=== PATIENT | male | born 1970 | race Caucasian/White ===

== ENCOUNTER → 2017-02-10 | Outpatient (CLI) | payer OTHER ==
--- NOTE | 2017-02-10 11:37 | XR ---
EXAM TYPE: LUMBAR SPINE X RAY SERIES COMPARISON: NONE HISTORY: Back pain TECHNIQUE: 4 views are submitted. FINDINGS: Alignment is anatomic. The pedicles are intact. The transverse processes are intact. Degenerative d isc disease at all levels with severe changes L5-S1 with a grade 1 anterolisthesis. Suspect bilateral spondylolysis. Multilevel facet arthropathy noted. IMPRESSION: 1. Multilevel moderate to severe degenerative disc disease with most marked findings at L5-S1. 2. Grade 1 anterolisthesis L5 on S1 with bilateral spondylolysis L5.
== END | disposition home or self-care (01) ==
LOC: RADXRMAIN 11:13
PROVIDERS: ATTEND Internal Medicine
DX: M43.17 Spondylolisthesis, lumbosacral region (principal); M51.37 Other intervertebral disc degeneration, lumbosacral region; M47.816 Spondylosis without myelopathy or radiculopathy, lumbar region
CPT/HCPCS: 72110

== ENCOUNTER → 2017-03-04 | Outpatient (CLI) | payer OTHER ==
--- NOTE | 2017-03-04 13:49 | MR ---
EXAMINATION TYPE: MR lumbar spine wo con DATE OF EXAM: 03/04/2017 COMPARISON: Lumbar spine x-ray February 10, 2017. CT renal stones November 03, 2015. HISTORY: Low back pain TECHNIQUE: Multiplanar, multisequence imaging of the lumbar spine is performed without IV contrast. FINDINGS: Sagittal images of the lumbar spine show vertebral body heights to remain satisfactory. As suspected on plain films and confirmed on old CT there are bilateral pars defects at L5 level. There is grade 1 anterolisthesis of L5 on S1 measured approximately 5 to 6 mm on sagittal images. Multilev el disc desiccation is seen. There is mild to moderate multilevel disc space narrowing. Multilevel sm all posterior disc herniations are seen on sagittal images. The conus medullaris is somewhat high in position ending at mid T12 level. No abnormal signal is seen. No suspicious clumping of lumbosacral n erve roots is present. There is heterogeneous diminished T1 and T2 signal consistent with Modic type III degenerative change involving the superior S1 endplate. Vacuum disc phenomenon L5-S1 level is pre sent. Mild multilevel anterior spurring is seen. Axial images show the T12-L1 level to appear within normal limits. Axial images at the L1-L2 level show mild broad disc bulge mildly effacing anterior thecal sac. There is mild facet degenerative changes seen bilaterally. Bilateral neural foramina are patent. Axial images at L2-L3 level show mild/moderate broad disc bulge mildly effacing anterior thecal sac o n axial image 18. There is mild facet degenerative change seen bilaterally. There is mild right great er than left bilateral anterior inferior neural foraminal narrowing at this level identified. Axial images at the L3-L4 level show moderate broad-based posterior disc protrusion effacing anterior thecal sac. There is mild facet degenerative changes bilaterally. There is mild to moderate bilatera l anterior inferior neural foraminal narrowing at this level identified. Axial images at the L4-L5 level show broad-based central disc protrusion and mild facet degenerative changes bilaterally. There is mild to moderate bilateral anterior inferior neural foraminal narrowing at this level identified. Axial images at the L5-S1 level show mild facet degenerative changes bilaterally. There are spondylit ic assessed with broad-based posterior disc protrusion. There is increased signal posteriorly consist ent with annular tear. There is moderate to severe bilateral neural foraminal narrowing with encroach ment on inferior aspect of both L5 nerves felt present seen best on sagittal images 1 and 2 on the le ft and sagittal image 11 and 12 on the right. No suspicious retroperitoneal findings are seen. IMPRESSION: Multilevel degenerative changes in lumbar spine as detailed above. Attention to L5-S1 lev el where there are bilateral pars defects and spondylolisthesis, this contributes to moderate to phi re bilateral neural foraminal narrowing with suspected encroachment on both L5 nerves.
== END | disposition home or self-care (01) ==
LOC: RADMRIMAIN 12:41
PROVIDERS: ATTEND Internal Medicine
DX: M99.73 Connective tissue and disc stenosis of intervertebral foramina of lumbar region (principal); M47.816 Spondylosis without myelopathy or radiculopathy, lumbar region
CPT/HCPCS: 72148

== ENCOUNTER → 2017-04-29 | Outpatient (CLI) | payer OTHER ==
--- NOTE | 2017-04-29 14:39 | CT ---
EXAMINATION TYPE: CT lumbar spine wo con DATE OF EXAM: 04/29/2017 2:23 PM COMPARISON: NONE HISTORY: Spondylolisthesis lumbar region CT DLP: 2188 mGycm Automated exposure control for dose reduction was used. Unenhanced CT of the lumbar spine was performed. Bone and soft tissue window settings are submitted as well as coronal and sagittal reconstructions. There is multilevel mild to moderate degenerative disc disease with severe changes at L5-S1. Vacuum d isc phenomenon noted. There is postsurgical change of the left paraspinal region and there is a pleur al-based nodule within the left lower lobe measuring 5 mm. L1-L2: Normal disc space height. No disc herniation protrusion or central stenosis. No facet joint arthropathy. No evidence for foraminal encroachment. L2-L3: Diffuse disc bulging and facet arthropathy. Suspected degree of spinal stenosis due to diminu tive canal and disc bulging with hypertrophic change of facet. Foraminal encroachment noted. . L3-L4: Circumferential disc bulging with facet arthropathy. Diminutive spinal canal contributes to mark spected spinal stenosis with bilateral foraminal encroachment. L4-L5: There is facet arthropathy. There is a diminutive spinal canal and mild bilateral foraminal en croachment. Mild central disc bulging. Spinal stenosis suspected. L5-S1: There is a grade 1 spondylolisthesis with severe degenerative disc disease and vacuum disc phe nomenon. There is approximate 5 mm anterolisthesis. Bilateral spondylolysis noted. Significant bilate ral foraminal encroachment. IMPRESSION: 1. Grade 1 anterolisthesis L5 on S1 measuring approximately 5 mm. 2. Multilevel degenerative disc disease, facet arthropathy and disc bulging resulting in multilevel f oraminal encroachment as discussed above. 3. 5 mm left lower lobe pulmonary nodule appears stable from the CT of 11/03/2015 with evidence of pre vious surgery in the paraspinal region on the left. Correlate clinically..
== END | disposition home or self-care (01) ==
LOC: RADXRMAIN 14:06
PROVIDERS: ATTEND Orthopaedic Surgery
DX: M51.26 Other intervertebral disc displacement, lumbar region (principal); M43.16 Spondylolisthesis, lumbar region; M51.36 Other intervertebral disc degeneration, lumbar region; M46.86 Other specified inflammatory spondylopathies, lumbar region; Z98.890 Other specified postprocedural states
CPT/HCPCS: 72131

== ENCOUNTER → 2018-03-19 | Outpatient (CLI) | payer OTHER ==
--- NOTE | 2018-03-19 15:35 | CT ---
EXAMINATION TYPE: CT lumbar spine wo con DATE OF EXAM: 03/19/2018 11:59 AM COMPARISON: 04/29/2017 HISTORY: Low back pain, post op CT DLP: 1632.3 mGycm Automated exposure control for dose reduction was used. TECHNIQUE: Unenhanced CT of the lumbar spine was performed. Bone and soft tissue window settings are submitted as well as coronal and sagittal reconstructions. FINDINGS: There is grade 1 anterolisthesis of L5 on S1 as seen on the prior of 04/29/2017. This is no w surgically fixated and there is resection of the posterior elements. Pedicular screws and fixation rods traverse the L4-S1 vertebral levels. Minimal multilevel degenerative change is seen in the remai vance levels of the lumbar spine. No acute fracture or new additional site of malalignment. Fat strand ing and phlegmonous changes are seen of the subcutaneous tissues of the postoperative site, typically seen. Although evaluation for focal abscess is limited without intravenous contrast. L1-L2: Normal disc space height. No disc herniation protrusion or central stenosis. No facet joint arthropathy. No evidence for foraminal encroachment. L2-L3: There is a small broad-based disc bulge and facet arthropathy without significant spinal canal stenosis nor neural foraminal narrowing. L3-L4: There is facet arthropathy and a broad-based disc bulge resulting in mild to moderate bilatera l neural foraminal narrowing. No significant spinal canal stenosis. L4-L5: There is a broad-based disc bulge and resection of the posterior elements. There is mild right neural foraminal narrowing as result of the eccentric broad-based disc bulge. No spinal canal stenos is or left neural foraminal narrowing. L5-S1: Anterolisthesis is again appreciated. No neural foraminal narrowing or spinal canal stenosis. Posterior element resection is present. IMPRESSION: 1. Postoperative fusion of L4-S1 with phlegmonous changes in the subcutaneous soft tissues. Evaluatio n for abscess is limited without intravenous contrast. If there is leukocytosis and fever repeat exam with contrast could be performed. 2. Persistent surgically fixated grade 1 anterolisthesis of L4 on L5. 3. Mild multilevel degenerative changes of L2-L4 without appreciable spinal canal stenosis.
== END | disposition home or self-care (01) ==
LOC: RADCTMAIN 11:19
PROVIDERS: ATTEND Orthopaedic Surgery
DX: M47.816 Spondylosis without myelopathy or radiculopathy, lumbar region (principal); Z98.890 Other specified postprocedural states
CPT/HCPCS: 72131

== ENCOUNTER 2019-11-17 17:32 | Emergency (ER) | payer OTHER ==
[2019-11-17] MEDS ORDERED: diphenhydrAMINE 50 MG/ML 1 ML VIAL IM STA (18:40)
[2019-11-17] MEDS ORDERED: HYDROmorphone 1 MG/ML 1 ML SYRINGE IM STA (18:40)
--- NOTE | 2019-11-17 18:55 | XR ---
EXAMINATION TYPE: XR knee complete RT DATE OF EXAM: 11/17/2019 CLINICAL HISTORY: Twisting injury with pain. TECHNIQUE: Three views of the right knee are obtained. COMPARISON: None. FINDINGS: There is no acute fracture/dislocation evident in right knee. unremarkable. Evidence of p rior ACL surgical repair. Severe patellofemoral compartment narrowing and spurring. Moderate lateral tibiofemoral compartment spurring with mild to moderate narrowing. Moderate narrowing medial tibiofem oral compartment with mild spurring. Probable small to moderate sized suprapatellar joint effusion. IMPRESSION: There is no acute fracture or dislocation in the right knee.
--- NOTE | 2019-11-17 19:42 | ED ---
General Adult HPI - General Chief complaint: Extremity Injury, Lower Stated complaint: Knee injury Time Seen by Provider: 11/17/19 18:25 Source: patient, RN notes reviewed, old records reviewed Mode of arrival: ambulatory Limitations: physical limitation - History of Present Illness Initial comments: Patient is a 49-year-old male presents returns today with complaints of right knee pain after its twisted. He states he's had multiple knee surgeries in the past. He does have screws and plate within the knee. Patient reports that he has significant effusion swelling at this time. Patient reports these had no other significant complaints. - Related Data Home Medications Medication Instructions Recorded Confirmed Aspirin 650 mg PO BID PRN 04/13/04/22/16 Hydrocodone/Acetaminophen [[place] 1 tab PO Q6H PRN 04/22/16 04/22/16 5-325] Multivitamins, Thera [Multivitamin] 1 tab PO DAILY 04/22/16 04/22/16 Previous Rx's Medication Instructions Recorded Ibuprofen [Motrin] 800 mg PO Q6HR PRN #30 tab 04/12/16 Cephalexin [Keflex] 500 mg PO Q6HR #40 cap 04/22/16 HYDROcodone/APAP 5-325MG [[place] 5] 1 each PO Q4HR PRN #15 tab 04/22/16 HYDROcodone/APAP 5-325MG [[place] 1 tab PO Q4HR PRN 3 Days #18 tab 11/17/19 5-325] Ibuprofen [Motrin] 600 mg PO Q6HR PRN #20 tab 11/17/19 Allergies Allergy/AdvReac Type Severity Reaction Status Date / Time STERI-STRIPS AdvReac Severe BLISTERS Uncoded 11/17/19 18:21 Review of Systems ROS Statement: Those systems with pertinent positive or pertinent negative responses have been documented in the HPI. ROS Other: All systems not noted in ROS Statement are negative. Past Medical History Past Medical History: Asthma Additional Past Medical History / Comment(s): diverticulosis. And diverticulitis inquiring bowel resection and temporary colostomy Placement and reversal. Surgery completed by Dr. Michel. 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 Limitations: physical limitation General appearance: alert, in no apparent distress Head exam: Present: atraumatic, normocephalic, normal inspection Eye exam: Present: normal appearance, PERRL, EOMI. Absent: scleral icterus, conjunctival injection, periorbital swelling ENT exam: Present: normal exam, mucous membranes moist Neck exam: Present: normal inspection. Absent: tenderness, meningismus, lymphadenopathy Respiratory exam: Present: normal lung sounds bilaterally. Absent: respiratory distress, wheezes, rales, rhonchi, stridor Cardiovascular Exam: Present: regular rate, normal rhythm, normal heart sounds. Absent: systolic murmur, diastolic murmur, rubs, gallop, clicks GI/Abdominal exam: Present: soft, normal bowel sounds. Absent: distended, tenderness, guarding, rebound, rigid Extremities exam: Present: normal inspection, full ROM, normal capillary refill. Absent: tenderness, pedal edema, joint swelling, calf tenderness Right Upper Leg exam: Present: normal inspection, full ROM Knee exam: Present: normal inspection, tenderness, swelling. Absent: full ROM (pain with full extension) Lower Leg exam: Present: normal inspection, full ROM Back exam: Present: normal inspection Neurological exam: Present: alert, oriented X3, CN II-XII intact Psychiatric exam: Present: normal affect, normal mood Skin exam: Present: warm, dry, intact, normal color. Absent: rash Course Vital Signs 11/17/19 11/17/19 11/17/19 18:19 19:46 20:41 Temperature 98.2 F 98.9 F Pulse Rate 81 73 68 Respiratory 18 17 17 Rate Blood Pressure 117/77 114/66 131/82 O2 Sat by Pulse 95 95 98 Oximetry Procedures - Orthopedic Splinting/Casting Injury #1 Side: right Lower Extremity Injury Location: knee Lower Extremity Immobilizer: knee immobilizer Medical Decision Making - Medical Decision Making 49 year old male presents today for complaints of R knee sprain and shows evidence of effusion. PAtient has pain with full extension. PAtient xray shows effusion, no acute fracutre or dislocation. Discussed likely ligament injury. Discussed close ortho follow up and DC with knee immobilizer and pain medication. Return parameters discussed. - Radiology Data Radiology results: report reviewed There is no acute fracture/ dislocation evidence in right knee. Evidence of prior ACL repair. Small to moderate supra patellar joint effusion. Disposition Clinical Impression: Effusion, right knee, Right knee sprain Disposition: HOME SELF-CARE Condition: Good Instructions (If sedation given, give patient instructions): Knee Sprain (ED), ACL Injury (ED) Additional Instructions: Patient should ambulate with crutches and using the knee immobilizer to help support the leg. Using toe-touch to bear weight. Take pain medication as prescribed. Follow-up with orthopedic. Return to the ED if any alarming signs or symptoms occur. Prescriptions: Ibuprofen [Motrin] 600 mg PO Q6HR PRN #20 tab PRN Reason: Pain HYDROcodone/APAP 5-325MG [[place] 5-325] 1 tab PO Q4HR PRN 3 Days #18 tab PRN Reason: Pain Is patient prescribed a controlled substance at d/c from ED?: Yes If prescribed controlled substance>3 days was MAPS reviewed?: Prescribed <3 Days If opioid is for acute pain is fill amount 7 days or less?: Yes If Rx opioid, was Start Talking consent form obtained?: Yes Referrals: Radha Cai MD [Primary Care Provider] - 1-2 days Heath Heller PAC [PHYSICIAN INTAKE MANAGER] - 1-2 days Time of Disposition: 20:20
[2019-11-17 19:48] VITALS: RESP 17
[2019-11-17 20:56] VITALS: BP 131/82; PULSE 68; TEMP 98.9
== END 2019-11-17 20:41 | disposition home or self-care (01) ==
LOC: EC 17:32
DX: S83.91XA Sprain of unspecified site of right knee, initial encounter (principal); M25.461 Effusion, right knee; Z91.048 Other nonmedicinal substance allergy status; X50.1XXA Overexertion from prolonged static or awkward postures, initial encounter
CPT/HCPCS: 73562; 99284; 96372 ×2; L1830 ×2; J1200; J1170

== ENCOUNTER → 2019-12-27 | Outpatient (CLI) | payer OTHER ==
--- NOTE | 2019-12-27 10:08 | MR ---
EXAMINATION TYPE: MR knee RT wo con DATE OF EXAM: 12/27/2019 COMPARISON: Plain film 11/21/2019 HISTORY: Right Knee Pain, Stepped in a hole. Prior Surgery TECHNIQUE: Multiplanar, multisequence imaging of the right knee is performed without IV contrast. FINDINGS: There is artifact due to patient's indwelling hardware. MEDIAL MENISCUS: Abnormal signal is present within the meniscus which may correspond to chondrocalcin osis. The posterior horn of the meniscus torn, complete tear as noted on coronal image 25, sagittal i mage 11 LATERAL MENISCUS: Chondrocalcinosis noted on plain film, abnormal signal present within the body, ant erior and posterior horns of the meniscus. Posterior horn meniscus is torn completely, no attachment to the root anchor similar to the posterior horn of the medial meniscus CRUCIATE LIGAMENTS: Patient shows anterior cruciate ligament repair, the graft shows some intact fibe rs, there may be partial tear COLLATERAL LIGAMENTS: Screw tract is present within the lateral femoral condyle, there is some artifa ct present, fluid signal is present coursing along the distal aspect of the lateral femoral condyle i n close proximity to the iliotibial band, focal defect noted on axial image 17 is likely due to screw placement through the iliotibial band, correlate with surgical history is fluid signal present at th is level EXTENSOR MECHANISM: Visualized quadriceps and patellar tendons are intact. EFFUSION: There is a suprapatellar joint effusion present. POPLITEAL CYST: No popliteal/lopes cyst. TRICOMPARTMENT SPACES: Joint space loss present. Femoral joint, lateral compartment. There is margina l spurring at the patellofemoral joint, lateral compartment and medial compartment CARTILAGE: Grade III chondromalacia present in the medial compartment, grade 3 to grade IV chondromal acia present laterally and present at the posterior patella BONE MARROW SIGNAL: Some reactive bone marrow signal changes present along the proximal tibia at the level of the tibial spine, there is likely local geode formation OTHER: There is subcutaneous edema present in the prepatellar location, there may be local fluid pre sent with septation, metallic artifact is present this level possibly due to prior surgery. Possible ganglion cyst present posterior to the knee joint, as internal septations present. T2 bright signal, cluster of grapes appearance measuring 11 mm in greatest dimension. There is an ossific density prese nt posterior to the joint suggestive of loose body. Possible strain or chronic degenerative signal pr esent within the proximal bellies of the gastrocnemius, some local fluid present and increased signal within the tendon. IMPRESSION: Osteoarthritis, postop changes, tear of the posterior horns of the medial and lateral menisci and add itional findings above.
== END | disposition home or self-care (01) ==
LOC: RADMRIMAIN 08:42
PROVIDERS: ATTEND Orthopaedic Surgery
DX: M17.11 Unilateral primary osteoarthritis, right knee (principal); Z98.890 Other specified postprocedural states; S83.281A Other tear of lateral meniscus, current injury, right knee, initial encounter

== ENCOUNTER → 2020-01-03 | Outpatient (CLI) | payer OTHER ==
[2020-01-03 10:48] LABS: Basophils % (A) 1 %; Eosinophils # (A) 0.1 k/uL (0-0.7); Eosinophils % (A) 3 %; HCT 44.1 % (39.0-53.0); HGB 14.7 gm/dL (13.0-17.5); Lymphocytes # (A) 1.4 k/uL (1.0-4.8); Lymphocytes % (A) 33 %; MCH 31.8 pg (25.0-35.0); MCHC 33.3 g/dL (31.0-37.0); MCV 95.5 fL (80.0-100.0); Mean Platelet Volume 7.8; Monocytes # (A) 0.3 k/uL (0-1.0); Monocytes % (A) 7 %; Neutrophils # (A) 2.4 k/uL (1.3-7.7); Neutrophils % (A) 55 %; Platelet Count 209 k/uL (150-450); RBC 4.62 m/uL (4.30-5.90); RDW 12.9 % (11.5-15.5); WBC 4.4 k/uL (3.8-10.6)
== END | disposition home or self-care (01) ==
LOC: LABPAT 09:45
PROVIDERS: ATTEND Orthopaedic Surgery
DX: Z01.818 Encounter for other preprocedural examination (principal); M23.91 Unspecified internal derangement of right knee
CPT/HCPCS: 36415; 80051; 85025; 93005

== ENCOUNTER → 2020-01-20 | Day surgery (SDC) | payer OTHER ==
[2020-01-17 10:51] VITALS: BMI 35.9
--- NOTE | 2020-01-19 21:50 | HP ---
HISTORY AND PHYSICAL CHIEF COMPLAINT: Right knee pain. 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 He notes persistent pain and intermittent giving way. He tried an injection along with anti-inflammatories and bracing, without much relief. He has been off work because of this. PAST MEDICAL HISTORY: negative PAST SURGICAL HISTORY: Significant for left Achilles tendon repair. ACL reconstruction CURRENT MEDICATIONS: Ibuprofen. ALLERGIES: DILAUDID. FAMILY HISTORY: Family history is noncontributory. SOCIAL HISTORY: Negative for current tobacco or alcohol use. REVIEW OF SYSTEMS: Sixteen-point review of systems otherwise reviewed and is noncontributory. PHYSICAL EXAMINATION: On examination, the patient is approximately 6 feet 1 inch tall, 290 pounds of endomorphic habitus. HEENT exam is nonfocal. NECK: Supple. He has painless passive motion of the right hip. Straight leg raise is negative. Active motion of the right knee is minus 10 to 100 degrees of flexion. There is mild effusion. He is tender about the medial and lateral joint line. Collaterals are stable. Evert is 1+. Sharifa's elicits medial and lateral pain. His distal neurovascular exam appears intact in the right lower extremity. MRI report of right knee from 12/27/2019 shows evidence of posterior medial and lateral meniscal tears. Previous hardware related to his ACL reconstruction is noted. There is also a degree of chondrocalcinosis. IMPRESSION: 1. Internal derangement of right knee with symptomatic medial and lateral meniscal tears. 2. History of ACL reconstruction, right knee. RECOMMENDATIONS: I have talked to the patient at length regarding his condition along with treatment options. At this point he is quite symptomatic and opts to proceed with surgery. We will plan to proceed with arthroscopic evaluation with probable partial medial and lateral meniscectomy. We will likely perform that as an outpatient procedure. Risks and benefits were discussed at length in layman's terms. MMODL / IJN: [id number] / MTDD
[~2020-01-20] MED LIST: DEXAMETHASONE SOD PHOSPHATE 10 MG/ML 1 ML VIAL IV ONE; HYDROcodone/APAP 7.5-325MG 1 EACH TAB ONE; HYDROcodone/APAP 7.5-325MG 1 EACH TAB PO ONE; KETOROLAC 30 MG/ML 1 ML VIAL ONE; LACTATED RINGERS 1,000 ML IV ONE; LACTATED RINGERS 1,000 ML IV SCH; LIDOCAINE 1% (10MG/ML) FOR IV START INTRADERMA PRN; LIDOCAINE 1% INJ 10MG/ML (20 ML MDV) ONE; MIDAZOLAM 2 MG/2 ML VIAL ONE; MORPHINE SULFATE 4 MG/ML SYRINGE IV PRN; ONDANSETRON 4 MG/2 ML VIAL IVP ONE; ONDANSETRON 4 MG/2 ML VIAL ONE; PROPOFOL 10 MG/ML 20 ML VIAL IV ONE; ceFAZolin 3 GM in SODIUM CHLORIDE 0.9% 100 ML IVPB ONE; fentaNYL (PF) 50 MCG/ML 2 ML AMP ONE
--- NOTE | 2020-01-20 09:53 | P.OP ---
Date of Procedure: 01/20/20 Preoperative Diagnosis: Right knee internal derangement Postoperative Diagnosis: Right knee posterior medial meniscal tear/posterior lateral meniscal tear/grade 3 chondral injury distal medial femoral condyle/loose body Procedure(s) Performed: Right knee arthroscopic partial medial meniscectomy/partial lateral meniscectomy/medial femoral chondrectomy/microfracture medial femoral condyle/loose body removal 1 x 1 cm Anesthesia: LIA Surgeon: Winston Franco Estimated Blood Loss (ml): 10 Pathology: none sent Condition: stable Disposition: PACU Indications for Procedure: The patient is a 49-year-old male presents with progressive right knee pain and mechanical symptoms after previous injury. A discussion of the risks and benefits of continued conservative measures versus operative intervention was made with patient. He opted to proceed with surgery. Operative risks to in clude infection, neurovascular injury, development of blood clots, possible incomplete resolution of symptoms, possible worsening symptoms and need for subsequent procedures was discussed. Informed consent was obtained. Operative Findings: As below Description of Procedure: The patient was brought to the operating room, and after induction of general anesthesia examined the right knee. Collaterals were stable, Evert was 1+, and posterior drawer was negative. The right lower extremity was prepped and draped in a normal fashion. A superior lateral portal was made through a 3 mm skin incision superior and lateral to the patella. This was used for outflow. A lateral portal was made through a 5 mm vertical skin incision lateral to the patella tendon above the joint line. Diagnostic arthroscopy was performed. On inspection of the medial compartment, a complex tear involving the posterior horn of the medial meniscus in the white-red junction was noted. This was debrided back to stable base with straight baskets and a motorized shaver. A grade 3/4 chondral defect was noted involving the posterior central aspect the medial femoral condyle. There was a loose chondral flap debrided back to stable base motorized shaver. Microfracture was performed with a power pik breaching the subchondral surface down to the bone marrow elements On inspection of the notch, the anterior cruciate ligament appeared to be intact but did have some laxity. On inspection of the lateral compartment, a complex tear involving the posterior to middle one third of the lateral meniscus was noted in the white- white junction. This was debrided back to stable base with straight baskets and motorized shaver. A degree of chondrocalcinosis was also noted. A 1 x 1 cm loose body was noted in the posterior lateral joint. This was removed with a grasper. Grade 2-3 chondral changes were noted diffusely in the lateral compartment. On inspection of the patellofemoral articulation, grade 2-3 chondral changes were noted diffusely. The gutters were clear debris. The knee was then thoroughly irrigated. The portals were closed with simple 3-0 nylon sutures. A sterile dressing was applied in addition to a compression stocking. The patient was awoken from general anesthesia and transferred to recovery room in good condition. Blood loss was estimated at 10 mL. No complications were incurred.
[2020-01-20 09:58] VITALS: TEMP 97.1
[2020-01-20] MEDS: fentaNYL (PF) 50 MCG/ML 2 ML AMP IV ONE ×2 (10:08→10:15)
[2020-01-20 11:04] VITALS: BP 132/69; PULSE 76; RESP 17
== END | disposition home or self-care (01) ==
LOC: OR 07:35
PROVIDERS: ATTEND Orthopaedic Surgery
DX: S83.241A Other tear of medial meniscus, current injury, right knee, initial encounter (principal); S83.281A Other tear of lateral meniscus, current injury, right knee, initial encounter; S83.31XA Tear of articular cartilage of right knee, current, initial encounter; X58.XXXA Exposure to other specified factors, initial encounter; M23.41 Loose body in knee, right knee; J45.909 Unspecified asthma, uncomplicated; K08.109 Complete loss of teeth, unspecified cause, unspecified class; F41.9 Anxiety disorder, unspecified; F32.9 Major depressive disorder, single episode, unspecified; M19.90 Unspecified osteoarthritis, unspecified site; Z79.899 Other long term (current) drug therapy; Z98.890 Other specified postprocedural states; Z88.5 Allergy status to narcotic agent; Z91.09 Other allergy status, other than to drugs and biological substances
CPT/HCPCS: 29880; 29879; J2250; J1100; J0690; J2405; J2001; J3010; J1885; J2704

== ENCOUNTER → 2020-06-20 | Outpatient (CLI) | payer OTHER ==
--- NOTE | 2020-06-20 11:12 | XR ---
EXAMINATION TYPE: XR foot complete LT DATE OF EXAM: 06/20/2020 COMPARISON: None HISTORY: Pain in left heel TECHNIQUE: Three-view left foot FINDINGS: No acute fractures or dislocations are evident. Joint spaces are preserved. Plantar calcane al heel spur is present. Note is made of some calcification within the Achilles tendon region. Follow-up exams can be performed 7-10 days from acute trauma for continued pain. IMPRESSION: 1. No acute osseous abnormality. 2. Plantar calcaneal heel spur
== END | disposition home or self-care (01) ==
LOC: RADXRMAIN 09:54
PROVIDERS: ATTEND Internal Medicine
DX: M77.32 Calcaneal spur, left foot (principal)

== ENCOUNTER 2020-12-25 21:16 | Emergency (ER) | payer OTHER ==
[2020-12-25 21:37] VITALS: BP 113/71; PULSE 110; RESP 16; TEMP 98
[2020-12-25] MEDS ORDERED: IBUPROFEN 800 MG TAB PO STA (21:46)
[2020-12-25] MEDS ORDERED: HYDROcodone/APAP 5-325MG 1 EACH TAB PO STA (21:47)
--- NOTE | 2020-12-25 21:48 | ED ---
Lower Extremity Injury HPI - General Chief Complaint: Extremity Injury, Lower Stated Complaint: Right foot injury Source: patient, family, RN notes reviewed, old records reviewed Mode of arrival: ambulatory Limitations: no limitations - History of Present Illness Initial Comments: 50-year-old well-appearing well-nourished white male, alert and oriented 4, presents emergency room with complaints of right foot injury after stepping into a pole. Patient states that he felt a popping sensation in his foot hyperflexed. Patient states that the pain is along the lateral aspect of the fifth metatarsal to the lateral malleolus. Patient states he is able to bear weight but with increasing pain. Patient states pain is 9 out of 10 and was going to take one of his narcosis at home but decided to come in and have it evaluated first. Patient does have a history of asthma and osteoarthritis, left lobectomy and bowel resection with colostomy reversal. Patient denies any other injuries. Denies any open wounds. MD Complaint: ankle injury -: hour(s) Injury: Ankle: Right Type of Injury: hyperflexion Place: street/outdoors Severity scale (1-10): 9 Improves With: immobilization Worsens With: weight bearing, movement, palpation Context: other (Stepped into a hole) Associated Symptoms: snap/pop sensation - Related Data Home Medications Medication Instructions Recorded Confirmed Multivitamins, Thera [Multivitamin] 1 tab PO DAILY 04/22/16 01/20/20 ALPRAZolam [Xanax] 5 mg PO HS PRN 01/17/20 01/20/20 Citalopram Hydrobromide [CeleXA] 20 mg PO QAM 01/17/20 01/20/20 Glucosamine/Chondr [place] A Sod [Osteo 1 each PO DAILY 01/17/20 01/20/20 Bi-Flex Caplet] Previous Rx's Medication Instructions Recorded HYDROcodone/APAP 7.5-325MG [[place] 1 each PO Q6HR PRN #18 tab 01/20/20 7.5] Allergies Allergy/AdvReac Type Severity Reaction Status Date / Time hydromorphone [From Dilaudid] Allergy Itching Verified 12/25/20 21:33 STERI-STRIPS AdvReac Severe BLISTERS Uncoded 12/25/20 21:33 Review of Systems ROS Statement: Those systems with pertinent positive or pertinent negative responses have been documented in the HPI. ROS Other: All systems not noted in ROS Statement are negative. Past Medical History Past Medical History: Asthma, Osteoarthritis (OA) Additional Past Medical History / Comment(s): Hx Diverticulitis requiring bowel resection and temporary colostomy. Wears a right knee brace. History of Any Multi-Drug Resistant Organisms: None Reported Past Surgical History: Back Surgery, Bowel Resection, Orthopedic Surgery Additional Past Surgical History / Comment(s): Hand, knee, achilles, and shoul tristin surgery, left lobectomy for non-cancerous tumor, colostomy, colostomy reversal. Spinal fusion with pins/screws. Past Anesthesia/Blood Transfusion Reactions: Postoperative Nausea & Vomiting (PONV) Past Psychological History: Anxiety, Depression Smoking Status: Never smoker Past Alcohol Use History: None Reported Past Drug Use History: None Reported - Past Family History Father Family Medical History: Cancer Additional Family Medical History / Comment(s): Current Stage 4 Lung Cancer. Mother Family Medical History: Cancer General Exam Limitations: no limitations General appearance: alert, in no apparent distress Head exam: Present: atraumatic, normocephalic, normal inspection Eye exam: Present: normal appearance, PERRL, EOMI. Absent: scleral icterus, conjunctival injection, periorbital swelling ENT exam: Present: normal exam, normal oropharynx, mucous membranes moist Neck exam: Present: normal inspection, full ROM. Absent: tenderness, meningismus, lymphadenopathy, thyromegaly Respiratory exam: Present: normal lung sounds bilaterally. Absent: respiratory distress, wheezes, rales, rhonchi, stridor, chest wall tenderness, accessory muscle use, decreased breath sounds, prolonged expiratory Cardiovascular Exam: Present: normal rhythm, tachycardia, normal heart sounds. Absent: systolic murmur, diastolic murmur, rubs, gallop, clicks GI/Abdominal exam: Present: soft, normal bowel sounds. Absent: distended, tenderness, guarding, rebound, rigid Extremities exam: Present: tenderness, normal capillary refill. Absent: pedal edema, joint swelling, calf tenderness Right Lower Leg exam: Present: normal inspection, full ROM. Absent: tenderness, swel ling Ankle exam: Present: tenderness, swelling. Absent: full ROM, abrasion, laceration, ecchymosis (Right lateral malleolus), deformity, crepitus, dislocation, erythema Foot/Toe exam: Present: normal inspection, tenderness (The metatarsal). Absent: full ROM, swelling, ecchymosis, deformity, crepitus, puncture wound, foreign body Neurovascular tendon exam: Present: no vascular compromise, abnormal cap refill. Absent: pulse deficit, extremity cold to touch, pallor, foot drop Back exam: Present: normal inspection, full ROM. Absent: tenderness, CVA tenderness (R), CVA tenderness (L), muscle spasm, paraspinal tenderness, vertebral tenderness Neurological exam: Present: alert, oriented X3, CN II-XII intact Psychiatric exam: Present: normal affect, normal mood Skin exam: Present: warm, dry, intact, normal color. Absent: rash, cyanosis, diaphoretic, erythema, petechiae, pallor, mottled Course Vital Signs 12/25/20 21:34 Temperature 98 F Pulse Rate 110 H Respiratory 16 Rate Blood Pressure 113/71 O2 Sat by Pulse 96 Oximetry Medical Decision Making - Medical Decision Making X-ray of the right foot shows no acute fracture or dislocation. There is mild degenerative changes noted. Patient will be placed in an ortho shoe directed to follow up with orthopedics. Case discussed with Dr. Whatley Disposition Clinical Impression: Right foot injury Disposition: HOME SELF-CARE Condition: Good Instructions (If sedation given, give patient instructions): Foot Sprain (ED) Additional Instructions: Rest, ice, and elevate, Motrin as needed for pain and swelling. Follow-up with the primary care doctor in 1 week. Is patient prescribed a controlled substance at d/c from ED?: No Referrals: Radha Cai MD [Primary Care Provider] - 1-2 days Jaskaran Recinos MD [STAFF PHYSICIAN] - 1-2 days Time of Disposition: 22:17
--- NOTE | 2020-12-25 22:14 | XR ---
Result: History: Pain. Comparison: None available. Technique: 3 views of the right foot. Findings: The bone mineralization is appropriate for age. No acute fracture or dislocation is seen. The visualized osseous structures are in anatomic alignmen t. There are scattered mild degenerative changes. Impression: No acute osseous abnormality.
== END 2020-12-25 22:38 | disposition home or self-care (01) ==
LOC: EC 21:16
DX: S99.921A Unspecified injury of right foot, initial encounter (principal); J45.909 Unspecified asthma, uncomplicated; M19.90 Unspecified osteoarthritis, unspecified site; F32.9 Major depressive disorder, single episode, unspecified; F41.9 Anxiety disorder, unspecified; Z79.891 Long term (current) use of opiate analgesic; Z79.899 Other long term (current) drug therapy; X50.1XXA Overexertion from prolonged static or awkward postures, initial encounter
CPT/HCPCS: 99283

== ENCOUNTER 2021-02-20 10:06 | Day surgery (SDC) | payer OTHER ==
--- NOTE | 2021-02-20 10:01 | P.GSHP ---
History of Present Illness H&P Date: 02/20/21 CHIEF COMPLAINT: Colon screen HISTORY OF PRESENT ILLNESS: The patient is a 50-year-old male who presents for colon screen. Lower endoscopy was offered for further evaluation and management. PAST MEDICAL HISTORY: Please see list. PAST SURGICAL HISTORY: Please see list. MEDICATIONS: Please see list. ALLERGIES: Please see list. SOCIAL HISTORY: No illicit drug use FAMILY HISTORY: No reports of Crohn disease or ulcerative colitis. REVIEW OF ORGAN SYSTEMS: CONSTITUTIONAL: No reports of fevers or chills. PHYSICAL EXAM: VITAL SIGNS: Stable GENERAL: Well-developed pleasant in no acute distress. HEENT: No scleral icterus. Extraocular movements grossly intact. Moist buccal mucosa. NECK: Supple without lymphadenopathy. CHEST: Unlabored respirations. Equal bilateral excursions. CARDIOVASCULAR: Regular rate and rhythm. Distal 2+ pulses. ABDOMEN: Soft, nontender, nondistended. MUSCULOSKELETAL: No clubbing, cyanosis, or edema. ASSESSMENT: 1. Colon screen. PLAN: 1. Recommend proceeding with a lower endoscopy Past Medical History Past Medical History: Asthma, Osteoarthritis (OA) Additional Past Medical History / Comment(s): Hx Diverticulitis requiring bowel resection and temporary colostomy. Wears a right knee brace. History of Any Multi-Drug Resistant Organisms: None Reported Past Surgical History: Back Surgery, Bowel Resection, Orthopedic Surgery Additional Past Surgical History / Comment(s): Hand, knee, achilles, and shoulder surgery, left lobectomy for non-cancerous tumor, colostomy, colostomy reversal. Spinal fusion with pins/screws. Past Anesthesia/Blood Transfusion Reactions: Postoperative Nausea & Vomiting (PONV) Past Psychological History: Anxiety, Depression Smoking Status: Never smoker Past Alcohol Use History: None Reported Past Drug Use History: None Reported - Past Family History Father Family Medical History: Cancer Additional Family Medical History / Comment(s): Current Stage 4 Lung Cancer. Mother Family Medical History: Cancer Medications and Allergies Home Medications Medication Instructions Recorded Confirmed Type Multivitamins, Thera [Multivitamin] 1 tab PO DAILY 04/22/16 01/20/20 History ALPRAZolam [Xanax] 5 mg PO HS PRN 01/17/20 01/20/20 History Citalopram Hydrobromide [CeleXA] 20 mg PO QAM 01/17/20 01/20/20 History Glucosamine/Chondr [place] A Sod [Osteo 1 each PO DAILY 01/17/20 01/20/20 History Bi-Flex Caplet] HYDROcodone/APAP 7.5-325MG [[place] 1 each PO Q6HR PRN #18 tab 01/20/20 Rx 7.5] Allergies Allergy/AdvReac Type Severity Reaction Status Date / Time hydromorphone [From Dilaudid] Allergy Itching Verified 12/25/20 21:33 STERI-STRIPS AdvReac Severe BLISTERS Uncoded 12/25/20 21:33
[2021-02-20 10:38] VITALS: TEMP 97.7
[2021-02-20] MEDS ORDERED: LACTATED RINGERS 1,000 ML IV ONE (10:42)
[2021-02-20] MEDS ORDERED: PROPOFOL 10 MG/ML 20 ML VIAL IV ONE (10:58)
[2021-02-20] MEDS ORDERED: LIDOCAINE 1% INJ 10MG/ML (20 ML MDV) ONE (10:58)
[2021-02-20] MEDS ORDERED: fentaNYL (PF) 50 MCG/ML 2 ML AMP ONE (10:58)
[2021-02-20] MEDS ORDERED: MIDAZOLAM 2 MG/2 ML VIAL ONE (10:58)
--- NOTE | 2021-02-20 11:22 | P.PCN ---
Date of Procedure: 02/20/21 Description of Procedure: PREOPERATIVE DIAGNOSIS: Personal history of colon polyps POSTOPERATIVE DIAGNOSIS: Personal history of colon polyps Tubular adenoma hepatic flexure Tubular adenoma ascending colon Sigmoid diverticulosis OPERATION: Colonoscopy to the ileocecal valve and appendiceal orifice, cecum Colonoscopy with hot snare polypectomy SURGEON: Charmaine Watson MD. ANESTHESIA: MAC. INDICATIONS: The patient is an 50-year-old male who presents personal history of colon polyps. Last colonoscopy over 5 years. Benefits and risks were described and informed consent was obtained. DESCRIPTION OF PROCEDURE: The patient had undergone Sutab prep. The patient had been brought into the operating room and laid in the left lateral decubitus position. After adequate intravenous sedation, the rectum was examined with 2% lidocaine jelly. The prostate was unremarkable. No external hemorrhoids were encountered. The rectal tone was within normal limits. No lesions were palpated in the rectal vault. An Olympus colonoscope was advanced until the cecum, ileocecal valve and appendiceal orifice were clearly viewed. The prep was excellent. Sigmoid diverticulosis was encountered. Colonic polyps were found and removed. No evidence of focal colitis was found. Retroflexion of the scope demonstrated grade 1 internal hemorrhoids without active bleeding or inflammation. The colon was desufflated. The patient had tolerated the procedure well. Withdrawal time was over 6 minutes. FINDINGS: Aronchick preparation quality scale 1 (1-5) Internal hemorrhoids, grade 1 No external hemorrhoids No arteriovenous malformations. Sigmoid diverticulosis Removal of 2 polyps: - Snare polypectomy at hepatic flexure, 5 mm tubulovillous adenoma polyp. - Snare polypectomy at ascending colon, 8 mm flat villous adenoma polyp. No focal colitis. RECOMMENDATIONS: Repeat colonoscopy in 3 years, 2023 Plan - Discharge Summary New Discharge Prescriptions: Continue Multivitamins, Thera [Multivitamin (formulary)] 1 tab PO DAILY Citalopram Hydrobromide [CeleXA] 20 mg PO QAM ALPRAZolam [Xanax] 5 mg PO HS PRN PRN Reason: Anxiety Glucosamine/Chondr [place] A Sod [Osteo Bi-Flex Caplet] 1 each PO DAILY HYDROcodone/APAP 7.5-325MG [[place] 7.5-325] 1 each PO Q6HR PRN #18 tab PRN Reason: Pain Albuterol Sulfate [Proair Hfa] 2 puff INHALATION DIRECTED PRN PRN Reason: Bronchospasm Discharge Medication List Multivitamins, Thera [Multivitamin (formulary)] 1 tab PO DAILY 04/22/16 [History] ALPRAZolam [Xanax] 5 mg PO HS PRN 01/17/20 [History] Citalopram Hydrobromide [CeleXA] 20 mg PO QAM 01/17/20 [History] Glucosamine/Chondr [place] A Sod [Osteo Bi-Flex Caplet] 1 each PO DAILY 01/17/20 [History] HYDROcodone/APAP 7.5-325MG [[place] 7.5-325] 1 each PO Q6HR PRN #18 tab 01/20/20 [Rx] Albuterol Sulfate [Proair Hfa] 2 puff INHALATION DIRECTED PRN 02/20/21 [History] Follow up Appointment(s)/Referral(s): Charmaine Watson MD [STAFF PHYSICIAN] - As Needed Patient Instructions/Handouts: Diverticulosis Diet (GEN), Diverticulosis (DC), Colorectal Polyps (GEN) Activity/Diet/Wound Care/Special Instructions: Repeat colonoscopy in 3 years, 2023 Discharge Disposition: HOME SELF-CARE
[2021-02-20 11:43] VITALS: RESP 18
[2021-02-20 11:45] VITALS: BP 106/66; PULSE 76
== END 2021-02-20 12:10 | disposition home or self-care (01) ==
LOC: ORWHC2ENDO 10:06
PROVIDERS: ATTEND Surgery Plastic and Reconstructive Surgery
DX: Z12.11 Encounter for screening for malignant neoplasm of colon (principal); Z86.010 Personal history of colon polyps; K63.5 Polyp of colon; D12.6 Benign neoplasm of colon, unspecified; M19.90 Unspecified osteoarthritis, unspecified site; J45.909 Unspecified asthma, uncomplicated; F41.9 Anxiety disorder, unspecified; F32.9 Major depressive disorder, single episode, unspecified; Z80.1 Family history of malignant neoplasm of trachea, bronchus and lung
CPT/HCPCS: 88305; 45385; J2250; J2001; J3010; J2704

== ENCOUNTER → 2021-04-15 | Outpatient (CLI) | payer OTHER | END | disposition home or self-care (01) | LOC: LABPAT 12:04 | PROVIDERS: ATTEND Orthopaedic Surgery | DX: Z01.812 Encounter for preprocedural laboratory examination (principal) | CPT/HCPCS: 87070 ==

== ENCOUNTER 2021-05-28 08:24 | Day surgery (SDC) | payer OTHER ==
[2021-05-23 12:23] VITALS: BMI 39.6
--- NOTE | 2021-05-27 12:16 | HP ---
HISTORY AND PHYSICAL CHIEF COMPLAINT: Right knee pain. 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 He notes swelling, stiffness and soreness. He notes intermittent giving way. He has had previous ACL reconstruction in addition to a right knee arthroscopy. He has also tried medications, weight loss and exercises, with persistence/worsening of his symptoms. PAST MEDICAL HISTORY: Significant for arthritis, depression. PAST SURGICAL HISTORY: Significant for left Achilles surgery, right knee arthroscopy, right ACL reconstruction. CURRENT MEDICATIONS: Ibuprofen. ALLERGIES: He has SENSITIVITY TO DILAUDID. FAMILY HISTORY: Negative. SOCIAL HISTORY: Negative for current tobacco or alcohol use. REVIEW OF SYSTEMS: Sixteen-point review of systems otherwise reviewed and is noncontributory. PHYSICAL EXAMINATION: On examination, the patient is approximately 6 feet 2 inches, 300 pounds of endomorphic habitus. HEENT exam is nonfocal. Neck is supple. He has painless passive motion of the right hip. Straight-leg raise is negative. Active motion of right knee: Minus 12 to 100 degrees of flexion. He is tender about the medial joint line. He has a mild effusion. Collaterals are stable, Evert's 2+ with a soft endpoint. Pivot shift is positive. Sharifa's is equivocal. He has genu varum alignment. He has an antalgic gait pattern. His distal neurovascular exam appears intact in the right lower extremity. Weightbearing, notch, lateral and Merchant views of the right knee obtained in the office show severe tricompartmental osteoarthrosis with significant lateral and patellofemoral joint space narrowing with subchondral sclerosis and prwl-pa-hocz changes. Previous metallic interference screws are noted. IMPRESSION: 1. Right knee severe tricompartmental osteoarthrosis. 2. Increased body mass index. 3. History of ACL reconstruction, right knee. RECOMMENDATIONS: I talked to the patient at length regarding his condition along with treatment options. At this point he is quite symptomatic and limited because of pain related to his osteoarthrosis despite extensive previous conservative measures. After thorough discussion, he opted to proceed with surgery. We will plan to proceed with right total knee arthroplasty. We will institute DVT prophylaxis postoperatively. MMODL / IJN: [id number] / [facility]
[~2021-05-28 08:24] MED LIST changes: +.fentaNYL (PF) 50 MCG/ML 2 ML AMP IV PRN; +ACETAMINOPHEN TAB 500 MG TAB PO PRN; -DEXAMETHASONE SOD PHOSPHATE 10 MG/ML 1 ML VIAL IV ONE; +DEXAMETHASONE SOD PHOSPHATE 4 MG/ML 1 ML VIAL IV ONE; -HYDROcodone/APAP 7.5-325MG 1 EACH TAB ONE; -HYDROcodone/APAP 7.5-325MG 1 EACH TAB PO ONE; -KETOROLAC 30 MG/ML 1 ML VIAL ONE; -LACTATED RINGERS 1,000 ML IV ONE; -LACTATED RINGERS 1,000 ML IV SCH; -LIDOCAINE 1% (10MG/ML) FOR IV START INTRADERMA PRN; -LIDOCAINE 1% INJ 10MG/ML (20 ML MDV) ONE; +MELOXICAM 7.5 MG TAB PO PRN; -MIDAZOLAM 2 MG/2 ML VIAL ONE; -MORPHINE SULFATE 4 MG/ML SYRINGE IV PRN; -ONDANSETRON 4 MG/2 ML VIAL ONE; -PROPOFOL 10 MG/ML 20 ML VIAL IV ONE; +TRANEXAMIC ACID 1,000 MG in SODIUM CHLORIDE 0.9% 100 ML IVPB PRN; -ceFAZolin 3 GM in SODIUM CHLORIDE 0.9% 100 ML IVPB ONE; +ceFAZolin 3 GM in SODIUM CHLORIDE 0.9% 100 ML IVPB PRN; -fentaNYL (PF) 50 MCG/ML 2 ML AMP ONE
[2021-05-28] MEDS: LACTATED RINGERS 1,000 ML IV SCH (09:05)
[2021-05-28] MEDS ORDERED: MIDAZOLAM 2 MG/2 ML VIAL IVP ONE (09:21)
--- NOTE | 2021-05-28 10:01 | P.ANPRN ---
Procedure Note - Anesthesia - Nerve Block Performed Right Adductor Canal Infusion Time Out Performed: Yes (0902) Date of Procedure: 05/28/21 Procedure Start Time: :10 Procedure Stop Time: :30 Location of Patient: PreOp Indication: Acute Post-Operative Pain, Analgesia, Requested by Surgeon Sedation Type: Sedate with meaningful contact maintained Preparation: Sterile Prep, Sterile Dressing Position: Supine Catheter Depth at Skin (cm): 9 Catheter: Indwelling Needle Types: Pajunk Needle Gauge: 18 Ultrasound used to visualize needle placement: Yes Ultrasound used to observe medication spread: Yes Injectate: 0.5% Ropivacaine (see comment for volume) Blood Aspirated: No Pain Paresthesia on Injection Noted: No Resistance on Injection: Normal Image Stored and Saved: Yes Events: Uneventful and Well Tolerated (20 ml of 0.5% Ropivacaine mixed with 20 ml of 09% Nacl and 4 mg of dexamethasone - 20 ml of mixture injected on each side.)
--- NOTE | 2021-05-28 10:03 | P.ANPRN ---
Procedure Note - Anesthesia - Nerve Block Performed Right iPack Single Time Out Performed: Yes (0902) Date of Procedure: 05/28/21 Procedure Start Time: :10 Procedure Stop Time: :30 Indication: Acute Post-Operative Pain, Analgesia, Requested by Surgeon Sedation Type: Sedate with meaningful contact maintained Preparation: Sterile Prep Position: Supine Catheter: None Needle Types: Pajunk Needle Gauge: 20 Ultrasound used to visualize needle placement: Yes Ultrasound used to observe medication spread: Yes Injectate: 0.5% Ropivacaine (see comment for volume) Blood Aspirated: No Pain Paresthesia on Injection Noted: No Resistance on Injection: Normal Image Stored and Saved: Yes Events: Uneventful and Well Tolerated (20 ml of 0.5% Ropivacaine mixed with 20 ml of 09% Nacl and - 20 ml of mixture injected on each side.)
[2021-05-28] MEDS ORDERED: ROCURONIUM 10 MG/ML (5 ML VIAL) IV ONE (10:34)
[2021-05-28] MEDS ORDERED: TRANEXAMIC ACID 1,000 MG/10 ML VIAL ONE (10:34)
[2021-05-28] MEDS ORDERED: SODIUM CHLORIDE 0.9% 100 ML BAG ONE (10:34)
[2021-05-28] MEDS ORDERED: ROPIVACAINE 5 MG/ML 30 ML VIAL ONE (10:34)
[2021-05-28] MEDS ORDERED: ePHEDrine 50 MG/ML 1 ML AMP ONE (10:34)
[2021-05-28] MEDS ORDERED: .fentaNYL (PF) 50 MCG/ML 2 ML AMP ONE (10:34)
[2021-05-28] MEDS ORDERED: PROPOFOL 10 MG/ML 20 ML VIAL IV ONE (10:34)
[2021-05-28] MEDS ORDERED: SUCCINYLCHOLINE CHLORIDE VIAL 200 MG/10 ML VIAL IV ONE (10:34)
[2021-05-28] MEDS ORDERED: LIDOCAINE 1% INJ 10MG/ML (20 ML MDV) ONE (10:34)
[2021-05-28] MEDS ORDERED: MIDAZOLAM 2 MG/2 ML VIAL ONE (10:34)
[2021-05-28] MEDS ORDERED: ceFAZolin 1,000 MG in SODIUM CHLORIDE 0.9% 1,000 ML IRRIGATION ONE (11:08)
[2021-05-28] MEDS ORDERED: LACTATED RINGERS 1,000 ML IV ONE ×2 (11:33→14:45)
[2021-05-28] MEDS ORDERED: MORPHINE SULFATE 2 MG/ML SYRINGE IVP PRN (12:39)
[2021-05-28] MEDS ORDERED: NALOXONE 0.4 MG/ML 1 ML VIAL IV PRN (12:39)
[2021-05-28] MEDS ORDERED: HYDROcodone/APAP 5-325MG 1 EACH TAB PO PRN (12:39)
--- NOTE | 2021-05-28 13:11 | P.OP ---
Date of Procedure: 05/28/21 Preoperative Diagnosis: Right knee severe tricompartmental osteoarthrosis/retained hardware with history of previous ACL reconstruction Postoperative Diagnosis: Same Procedure(s) Performed: Right total knee arthroplastycementedposterior stabilized/ Removal retained hardware right distal femur and proximal tibia Implants: Depuy Attune size 7 cemented femoral component, size 6 cemented tibial component, 9 mm articular surface, 38 mm cemented patellar component. This is a posterior stabilized implant. Anesthesia: LIA, regional Surgeon: Winston Franco Mounter Automatic #1: John Clark Estimated Blood Loss (ml): 50 Pathology: other (Bone fragments) Condition: stable Disposition: PACU Indications for Procedure: The patient's a 50-year-old male who presents with progressive right knee pain secondary osteoarthrosis despite conservative treatment. A discussion of the risks and benefits of operative intervention versus continued conservative measures was made with the patient. He opted proceed with surgery. Operative risks to include infection, neurovascular injury, development of blood clots, possible component loosening, possible component failure need for subsequent procedures was discussed. Informed consent was obtained. Operative Findings: As below Description of Procedure: The patient was brought to the operating room, and after induction of spinal anesthesia the right lower extremity was prepped and draped in a normal fashion. The tourniquet was inflated to 270 mm marker. A longitudinal incision extending 3 finger breaths above the superior pole of patella extending to the medial aspect the tibial tubercle was then made. The skin and subcutaneous tissues were divided sharply. Electrocautery was used for hemostasis. A medial parapatellar arthrotomy was performed. The medial soft tissues to include the superficial and deep portions of the medial collateral ligament were elevated subperiosteally. The patella was everted. A portion of the retropatellar fat pad was excised sharply. The anterior cruciate ligament was sacrificed. Blunt retractors were placed. A starting hole was made in the distal femur 1 cm anterior to the posterior cruciate ligament origin. An intramedullary femoral guide was then inserted planning on 5 valgus distal cut with 9 mm distal resection. The cutting block was pinned in place. The distal cut was then made. The posterior referencing sizing guide was utilized. I felt size 7 was most appropriate. 3 of external rotation was built into the system and verified off the trans-epicondylar axis and the posterior condyles. The cutting block was pinned in place. The anterior, posterior, and chamfer cuts then made. Bone fragments were removed. The intercondylar guide was placed and the notch cut was made with a sagittal saw. The bone block was removed in one fragment. The previous distal femoral interference screw was removed. The trial component was then placed. There is good anterior to posterior and medial to lateral fit. The distal peg holes were drilled. The trial component was removed. Attention was then paid towards preparing the proximal tibia. I removed the previous metallic interference screw from the proximal tibia. An extra medullary guide was utilized in line with the tibial shaft and second metatarsal distally. I planned on 2 mm resection from the medial compartment. The cutting block was pinned in place. The proximal tibial cut was then made. The bone was removed in one fragment. The remnants of the medial and lateral menisci were excised at the capsular junction with electrocautery. The tibia sized most appropriately at size 6. The trial femoral and tibial components were placed along with a 9 mm articular surface. I was able to obtain full flexion and extension with internal and external rotation. After several flexion and extension cycles, the tibial rotation was marked with electrocautery line with the medial one third of the tibial tubercle. Attention was then paid towards preparing the patella. A patella reamer was utilized taking stem to 14 mm of bone stock. A good flush cut was made. The patella sized most appropriately 38 mm. The peg holes were drilled. The trial components placed. I had good patellofemoral tracking with no hands technique. The trial components were then removed. The tibia was prepared in the appropriate rotation with appropriate drill and keel punch. The posterior osteophytes were removed with a curved osteotome. The flexion and extension gaps were checked and felt to be symmetric at 9 mm. A trial components were then removed. The bony surfaces were prepared with pulsatile lavage and dried. The tibial component was then cemented place was fully seated. Excess cement was removed. The femoral component cemented place and was fully seated. Excess cement was removed. The trial 9 mm articular surface was placed and the knee was put in full extension. The patella component was cemented place. After the cement had sufficiently hardened, the knee was again taken through a range of motion. Again I was able to obtain full flexion and extension with varus and valgus stress. The trial 9 mm articular surface was removed and the final one inserted. This was fully seated. Care was taken to avoid any soft tissue interposition. Pulsatile lavage was again utilized. The medial parapatellar arthrotomy was closed with #2 Ethibond suture. The tourniquet was deflated with approximately 70 minutes total tourniquet time. Final hemostasis was obtained with the cautery. There was minimal bleeding therefore a deep drain was not placed. The subcutaneous tissues were reapproximated with interrupted 2-0 Vicryl sutures. The skin was reapproximated with 3-0 subcuticular strata fix suture. Skin tape and adhesive was applied. A sterile dressing was applied. The patient was awoken from sedation and transferred to recovery room in good condition. Blood loss was estimated at 50 mL. No complications were incurred. Sponge and needle counts were correct at the end of the case. John TOUSSAINT assisted during the major components of this case to include exposure, bone resection, implantation, and closure.
[2021-05-28] MEDS ORDERED: ROPIVACAINE 0.2%-NS ON-Q PUMP 2 MG/ML EACH MISCELLANE ONE (13:20)
--- NOTE | 2021-05-28 13:35 | XR ---
EXAMINATION TYPE: XR knee limited RT DATE OF EXAM: 05/28/2021 COMPARISON: NONE TECHNIQUE: Two views submitted HISTORY: Post op FINDINGS: There is a prosthetic knee in near anatomic alignment. There is soft tissue edema and emphysema. IMPRESSION: 1. Postoperative change. Appears in near-anatomic alignment
[2021-05-28] MEDS ORDERED: HYDROmorphone 0.5 MG/0.5 ML SYRINGE IVP ONE (13:41)
[2021-05-28] MEDS ORDERED: HYDROcodone/APAP 7.5-325MG 1 EACH TAB PO ONE (14:59)
[2021-05-28] MEDS ORDERED: MORPHINE SULFATE 4 MG/ML SYRINGE ONE (17:10)
[2021-05-28] MEDS ORDERED: MORPHINE SULFATE 4 MG/ML SYRINGE IVP ONE (17:16)
[2021-05-28] MEDS: ceFAZolin 3 GM in SODIUM CHLORIDE 0.9% 100 ML IVPB SCH (19:35)
[2021-05-28] MEDS ORDERED: SENNOSIDES-DOCUSATE SODIUM 1 EACH TAB PO SCH (21:00)
[2021-05-29] MEDS: LACTATED RINGERS 1,000 ML IV SCH (01:26)
[2021-05-29] MEDS: ceFAZolin 3 GM in SODIUM CHLORIDE 0.9% 100 ML IVPB SCH (02:52)
[2021-05-29] MEDS: HYDROcodone/APAP 7.5-325MG 1 EACH TAB PO PRN ×3 (02:52→15:39)
[2021-05-29] MEDS ORDERED: ENOXAPARIN 30 MG/0.3 ML SYRINGE SQ SCH (04:00)
[2021-05-29 07:34] VITALS: RESP 18
--- NOTE | 2021-05-29 07:47 | P.PN ---
Progress Note - Text Progress Note Date: 05/29/21 patient was seen and evaluated at bedside. Status post postoperative day 1 for right total knee arthroplasty patient had adductor canal catheter for postop pain control. Patient rated pain at rest 4 out of 10 in severity. Patient describes pain is aching, throbbing type on the sides of the knee and back of the knee. Patient started walking with support. With activity patient pain levels are 6 out of 10 in severity. With the help of oral pain medications pain levels are tolerable. Patient denied any weakness/ numbness in his lower extremities. patient denied any fever, pain over the catheter site. Physical exam: Patient vital signs stable Patient is alert awake oriented 3 responding to all questions appropriately Examination of the catheter site showed dressing intact, no leaking fluid around the catheter, no redness, no tenderness over the catheter insertion area. plan: status post postoperative day 1 for right total knee arthroplasty with adductor canal catheter for pain control. Patient was discussed to continue the medication at the rate of 8 mL per hour until the pump is completely empty and instructed the patient how to discontinue the catheter.
[2021-05-29] MEDS ORDERED: ALPRAZolam 0.5 MG TAB PO PRN (08:47)
[2021-05-29] MEDS ORDERED: ALBUTEROL NEBULIZED 2.5 MG/3 ML INHALATION PRN (08:47)
[2021-05-29] MEDS ORDERED: CITALOPRAM HYDROBROMIDE 20 MG TAB PO SCH (09:00)
[2021-05-29 09:40] LABS: Basophils # (A) 0.01 X 10*3/uL (0.00-0.10); Basophils % (A) 0.1 %; Eosinophils # (A) 0 X 10*3/uL (0.04-0.35); Eosinophils % (A) 0 %; HCT 35.7 % (39.6-50.0); HGB 11.4 g/dL (13.0-17.0); Lymphocytes # (A) 0.86 X 10*3/uL (0.90-5.00); MCH 31.3 pg (27.0-32.0); MCHC 31.9 g/dL (32.0-37.0); MCV 98.1 fL (80.0-97.0); Mean Platelet Volume 10.3 fL (9.5-12.2); Monocytes # (A) 0.57 X 10*3/uL (0.20-1.00); Monocytes % (A) 7.3 %; Neutrophils # (A) 6.38 X 10*3/uL (1.80-7.70); Neutrophils % (A) 81.2 %; Platelet Count 208 X 10*3/uL (140-440); RBC 3.64 X 10*6/uL (4.40-5.60); RDW 12.5 % (11.5-14.5); WBC 7.85 X 10*3/uL (4.50-10.00)
--- NOTE | 2021-05-29 09:58 | P.CONS ---
History of Present Illness - Reason for Consult Consult date: 05/29/21 medical management Requesting physician: Winston Franco - Chief Complaint OA of the left knee - History of Present Illness This is a 50-year-old male patient who presented for an elective right knee arthroplasty with Dr. Stover on 05/28/2021. Patient reports progressive right knee pain for the past several years that have failed conservative management. Patient has a past medical history of asthma, osteoarthritis, anxiety and depression. Patient underwent right total knee arthroplasty and removal of retained hardware right distal femur and proximal tibia. Patient denies any significant cardiac history denies history of stroke, irregular heart rate or blood clots. Patient is currently resting comfortably in bed right knee dressing is clean dry and intact. Patient denies chest pain or shortness of breath. Patient denies nausea vomiting or diarrhea. Patient denies any urinary burning or frequency. Possible plans for DC today per orthopedic services Review of Systems Please refer to HPI otherwise unremarkable Past Medical History Past Medical History: Asthma, Osteoarthritis (OA) Additional Past Medical History / Comment(s): Hx Diverticulitis requiring bowel resection and temporary colostomy, had covid early spring this year, supposed to have heel surg. 2 weeks after this surg. @[facility] History of Any Multi-Drug Resistant Organisms: None Reported Past Surgical History: Back Surgery, Bowel Resection, Orthopedic Surgery Additional Past Surgical History / Comment(s): Hand, knee, achilles, and shoulder surgery, left lobectomy for non-cancerous tumor, colostomy, colostomy reversal. Spinal fusion with pins/screws, nasal surg. for fx. Past Anesthesia/Blood Transfusion Reactions: Postoperative Nausea & Vomiting (PONV) Additional Past Anesthesia/Blood Transfusion Reaction / Comm: PONV only once after shoulder surg. Past Psychological History: Anxiety, Depression Smoking Status: Never smoker Past Alcohol Use History: None Reported Past Drug Use History: None Reported - Past Family History Father Family Medical History: Cancer Additional Family Medical History / Comment(s): Current Stage 4 Lung Cancer. Mother Family Medical History: Cancer Medications and Allergies Home Medications Medication Instructions Recorded Confirmed Type ALPRAZolam [Xanax] 0.5 mg PO HS PRN 01/17/20 05/23/21 History Citalopram Hydrobromide [CeleXA] 20 mg PO QAM 01/17/20 05/23/21 History Glucosamine/Chondr [place] A Sod [Osteo 1 each PO BID 01/17/20 05/23/21 History Bi-Flex Caplet] Albuterol Sulfate [Proair Hfa] 2 puff INHALATION DIRECTED PRN 02/20/21 05/23/21 History Pxsnyrm-Xsmn-Aegk [id number] 2 each PO Q6HR PRN 05/23/21 05/23/21 History [Excedrin] Ibuprofen 800 mg PO Q8H PRN 05/23/21 05/23/21 History Apixaban [Eliquis] 2.5 mg PO BID #60 tab 05/28/21 Rx Docusate [Colace] 100 mg PO DAILY #30 capsule 05/28/21 Rx HYDROcodone/APAP 7.5-325MG [O'Brien 1 each PO Q6HR PRN #36 tab 05/28/21 Rx 7.5] Allergies Allergy/AdvReac Type Severity Reaction Status Date / Time hydromorphone [From Dilaudid] AdvReac Itching Verified 05/28/21 08:46 STERI-STRIPS AdvReac Severe BLISTERS Uncoded 05/28/21 08:46 Physical Exam Vitals: Vital Signs Temp Pulse Pulse Resp BP Pulse Ox 05/29/21 06:46 98.5 F 92 18 129/66 94 L 05/29/21 01:52 98.0 F 102 H 17 122/64 93 L 05/28/21 20:28 105 H 109/64 05/28/21 19:58 110 H 112/56 05/28/21 19:44 96 100/71 05/28/21 19:28 97 123/74 05/28/21 19:12 108 H 112/70 05/28/21 18:58 99 115/71 05/28/21 18:43 96 110/68 05/28/21 18:28 98 123/75 05/28/21 18:13 100 125/76 95 05/28/21 16:45 95 16 121/76 93 L 05/28/21 15:45 96 16 110/64 93 L 05/28/21 15:15 96 16 126/65 99 05/28/21 15:00 90 16 120/74 97 05/28/21 14:45 86 18 114/80 98 05/28/21 14:35 87 18 105/61 94 L 05/28/21 14:15 88 18 131/76 96 05/28/21 14:05 90 16 117/58 95 05/28/21 13:50 93 16 134/76 96 05/28/21 13:35 96 16 133/77 97 05/28/21 13:20 95 16 133/83 97 05/28/21 13:05 96.8 F L 92 20 135/76 95 Intake and Output 05/28/21 05/29/21 05/29/21 22:59 06:59 14:59 Intake Total 540 540 Output Total 500 Balance 40 540 Intake: Oral 540 540 Output: Urine 500 Other: # Voids 0 1 Weight 135.4 kg Head normocephalic Neck supple Lungs clear to auscultation bilaterally no wheezing or crackles Heart regular rate and rhythm S1-S2, no rub or gallop Abdomen is soft nontender nondistended positive bowel sounds no hepatosplenomegaly Extremities no edema. Right knee dressing clean dry and intact Neuro alert and orientated to 3 Results CBC & Chem 7: 05/29/21 05:29 Labs: Abnormal Lab Results - Last 24 Hours (Table) 05/29/21 Range/Units 05:29 RBC 3.64 L (4.40-5.60) X 10*6/uL Hgb 11.4 L (13.0-17.0) g/dL Hct 35.7 L (39.6-50.0) % MCV 98.1 H (80.0-97.0) fL MCHC 31.9 L (32.0-37.0) g/dL Lymphocytes # 0.86 L (0.90-5.00) X 10*3/uL Eosinophils # 0 L (0.04-0.35) X 10*3/uL Assessment and Plan Assessment: 1. Right knee osteoarthritis status post total right knee arthroplasty on 05/28/[address] Stover 2. History of anxiety 3. History of asthma with no exacerbation at this time 4. Previous history of ACL surgical repair Thank you for this consultation we'll continue to follow patient closely throughout stay Patient maintained on Lovenox for DVT prophylaxis Time with Patient: Greater than 30 (Greater than 60% of the total time spent in counseling and coordination of care)
--- NOTE | 2021-05-29 11:50 | P.DS ---
Providers Date of admission: 05/28/2021 Expected date of discharge: 05/29/21 Attending physician: Winston Franco Consults: 05/28/21 12:43 Consult Physician Routine Consulting Provider: Radha Cai Consult Reason/Comments: Medical Management s/p right total knee arthroplasty Do you want consulting provider notified?: Yes Primary care physician: Radha Cai Hospital Course: Date of admission: 05/28/2021 Date of discharge: 05/29/2021 Admission diagnosis: Right knee osteoarthritis Discharge diagnosis: Same Attending physician: Dr. Franco Surgical procedures: Right total knee arthroplasty Brief history: Patient is a 50-year-old male with a history of progressive primary right knee osteoarthritis. At this point patient has failed conservative treatment measures and has opted to proceed with a elective right total knee arthroplasty. Hospital course: Details of patient's surgery can be found in operative report. Patient tolerated the procedure well and was subsequently transported to orthopedic floor. Patient's orthopeidc and medical care was provided daily. Patient had daily laboratory tests performed for evaluation of overall blood counts. Patient had daily physical therapy to include strengthening range of motion as well as education with walker ambulation. Patient was treated with Lovenox for their postoperative DVT prophylaxis during their inpatient stay. Patient was noted to have a relatively uneventful postoperative course. Patient reported satisfactory pain control with oral pain medications by postoperative day 1. Patient showed satisfactory progress with physical therapy. Patient moved steadily through the program and had no difficulty meeting the goals by postoperative day 1. Given patient's otherwise satisfactory course and having met physical therapy goals, plan is to discharge patient home on postoperative day 1. Discharge condition/disposition: Patient will be discharged home in stable condition. Discharge medications: Instructions are given on resumption of patient's normal daily medications per primary care recommendation, in addition patient will be prescribed Accident 7.5 mg/325 mg; colace 100mg; Eliquis 2.5 mg BID x 2 weeks. Discharge instructions: 1. Wound care and infection precautions, keep incision dry and covered while showering, no lotions, creams, moisturizers. No soaking, tubs, pools, hottubs. Do not scrub over the incision. 2. Weight-bear as tolerated with walker / cane until follow-up. 3. Ice and elevate when necessary. Do not exceed 20 minutes per hour with ice pack. 4. Utilize compression sleeve until seen at first follow up appointment. 5. Visiting nursing care. 6. Home physical therapy including home CPM. 7. Pain meds and anticoagulants per prescription. 8. Pain medication has potential to cause constipation. Increase oral fluid and fiber intake. Contact primary care provider if you have not had a bowel movement within 48 hours after discharge 9. No anti-inflammatory medication until discussed at first post operative visit, this including Motrin, Aleve, Mobic, Diclofenac. 10. Follow up in office at 2 weeks postop with Jaden Heller PA-C / John Clark PA-C 11. Follow up with your primary care doctor 7-10 days after discharge. 12. Contact [facility] with any questions, . Meds: Accident 7.5 mg/325 mg; colace 100mg; Eliquis 2.5 mg BID x 2 weeks. Keep incision clean, dry, intact. While showering, cover mesh tape with Saran wrap or plastic bag. Keep mesh tape on until follow-up appointment in office in 2 weeks Assessment: Right knee osteoarthritis Procedures: Right total knee arthroplasty Patient Condition at Discharge: Good Plan - Discharge Summary Discharge Rx Participant: No New Discharge Prescriptions: New Docusate [Colace] 100 mg PO DAILY #30 capsule Apixaban [Eliquis] 2.5 mg PO BID #60 tab HYDROcodone/APAP 7.5-325MG [Accident 7.5] 1 each PO Q6HR PRN #36 tab PRN Reason: Pain No Action Citalopram Hydrobromide [CeleXA] 20 mg PO QAM ALPRAZolam [Xanax] 0.5 mg PO HS PRN PRN Reason: Anxiety Glucosamine/Chondr [place] A Sod [Osteo Bi-Flex Caplet] 1 each PO BID Albuterol Sulfate [Proair Hfa] 2 puff INHALATION DIRECTED PRN PRN Reason: Bronchospasm Ibuprofen 800 mg PO Q8H PRN PRN Reason: Pain Tmiowrx-Kxyh-Ukyh [id number] [Excedrin] 2 each PO Q6HR PRN PRN Reason: Headache Discharge Medication List ALPRAZolam [Xanax] 0.5 mg PO HS PRN 01/17/20 [History] Citalopram Hydrobromide [CeleXA] 20 mg PO QAM 01/17/20 [History] Glucosamine/Chondr [place] A Sod [Osteo Bi-Flex Caplet] 1 each PO BID 01/17/20 [History] Albuterol Sulfate [Proair Hfa] 2 puff INHALATION DIRECTED PRN 02/20/21 [History] Ueikoys-Oflx-Fbtj [phone] [Excedrin] 2 each PO Q6HR PRN 05/23/21 [History] Ibuprofen 800 mg PO Q8H PRN 05/23/21 [History] Apixaban [Eliquis] 2.5 mg PO BID #60 tab 05/28/21 [Rx] Docusate [Colace] 100 mg PO DAILY #30 capsule 05/28/21 [Rx] HYDROcodone/APAP 7.5-325MG [Accident 7.5] 1 each PO Q6HR PRN #36 tab 05/28/21 [Rx] Follow up Appointment(s)/Referral(s): John Clark, PAC [PHYSICIAN TEMPERING MACHINE OPERATOR] - 06/13/21 10:10 am [facility],Equipment [NON-STAFF] - (*Please call [facility] once home to arrange delivery of Continuous Passive Motion (CPM) machine. ) [facility], [NON-STAFF] - As Needed ([facility] will call you to schedule your in home nursing and physical therapy visits. ) Radha Cai MD [Primary Care Provider] - 06/05/21 3:30 pm Patient Instructions/Handouts: *Surgery [facility] - On-Q Pain Pump Discharge Inst ructions, *Surgery [facility] - (Anesthesia) Discharge Instructions Outpatient Surgery, How to Use an Incentive Spirometer (DC), Knee Replacement (GEN) Activity/Diet/Wound Care/Special Instructions: Discharge instructions: 1. Wound care and infection precautions, keep incision dry and covered while showering, no lotions, creams, moisturizers. No soaking, tubs, pools, hottubs. D o not scrub over the incision. 2. Weight-bear as tolerated with walker / cane until follow-up. 3. Ice and elevate when necessary. Do not exceed 20 minutes per hour with ice pack. 4. Utilize compression sleeve until seen at first follow up appointment. 5. Visiting nursing care. 6. Home physical therapy including home CPM. 7. Pain meds and anticoagulants per prescription. 8. Pain medication has potential to cause constipation. Increase oral fluid and fiber intake. Contact primary care provider if you have not had a bowel movement within 48 hours after discharge 9. No anti-inflammatory medication until discussed at first post operative visit, this including Motrin, Aleve, Mobic, Diclofenac. 10. Follow up in office at 2 weeks postop with Jaden Heller PA-C / John Clark PA-C 11. Follow up with your primary care doctor 7-10 days after discharge. 12. Contact [facility] with any questions, . Keep incision clean, dry, intact. Keep mesh tape on until follow up appt in office in 2 weeks. While showering, cover dressing/incision was Saran wrap/plastic bag. Medications: Accident 7.5 mg/325 mg 1-2 every 6 hours #36; Colace 100 mg daily; Eliquis 2.5 mg BID x 2 weeks Discharge Disposition: HOME WITH HOME HEALTH SERVICES
--- NOTE | 2021-05-29 11:54 | P.PN ---
Subjective Progress Note Date: 05/29/21 Principal diagnosis: Right knee osteoarthritis Patient was seen at bedside this morning standing up walking around room with walker. Patient says physical therapy went well this morning as he walked out to the hallway and up-and-down a couple steps. Patient says most the pain he has is directly over front of the knee. Patient says he does have walker at home. Patient says he is ready to go home today. Patient says he has not had bowel movement yet, however, patient says he has been passing gas. Patient says he is using incentive spirometer. Patient denies chest pain, fever, shortness breath, nausea, vomiting, change in vision, loss of bowel/bladder control. Objective - Vital Signs Vital signs: Vital Signs Temp 98.5 F 05/29/21 06:46 Pulse 92 05/29/21 06:46 Resp 18 05/29/21 06:46 BP 129/66 05/29/21 06:46 Pulse Ox 94 L 05/29/21 06:46 Intake & Output 05/28/21 05/29/21 05/29/21 18:59 06:59 18:59 Intake Total 2591 540 Output Total 50 500 Balance 2541 -500 540 Weight 135.4 kg 135.4 kg Intake: IV 2051 Oral 540 540 Output: Urine 500 Estimated Blood Loss 50 Other: # Voids 0 1 - Exam Right knee: Incision is clean, dry, and intact. The mesh tape is in good condition. There is minimal soft tissue swelling and ecchymosis surrounding the medial and lateral aspects of the incision. Calf is soft, no tenderness with palpation. Plantar flexion, dorsiflexion, EHL, FHL are intact. Sensory exam to light touch throughout the extremity is intact, dorsal pedis pulses 2+. - Labs CBC & Chem 7: 05/29/21 05:29 Labs: Abnormal Lab Results - Last 24 Hours (Table) 05/29/21 Range/Units 05:29 RBC 3.64 L (4.40-5.60) X 10*6/uL Hgb 11.4 L (13.0-17.0) g/dL Hct 35.7 L (39.6-50.0) % MCV 98.1 H (80.0-97.0) fL MCHC 31.9 L (32.0-37.0) g/dL Lymphocytes # 0.86 L (0.90-5.00) X 10*3/uL Eosinophils # 0 L (0.04-0.35) X 10*3/uL Assessment and Plan Assessment: Right knee osteoarthritis Postoperative day 1 status post right total knee arthroplasty Plan: 1. Right knee osteoarthritis - right total knee arthroplasty performed yesterday, 05/28/2021. Patient stable at bedside today.. Plan discharge home with health services. 2. Appreciate medical management 3. Pain management - [place]idan 7.5 mg/325 mg 4. DVT prophylaxis - Lovenox in hospital. Elqiuis 2.5 mg BID x 2 weeks for home 5. GI prophylaxis - Colace 6. PT/OT - weightbearing as tolerated with walker as needed 7. Encourage incentive spirometer use 8. Discharge planning - plan discharge home today with health services. Time with Patient: Less than 30
[2021-05-29 14:34] VITALS: BP 153/81; PULSE 85; TEMP 97.9
[2021-05-29 15:45] LABS: African American GFR (CKD) 116.9 (60.0-200.0); Albumin 3.6 g/dL (3.8-4.9); Albumin/Globulin Ratio 1.6 (1.60-3.17); Anion Gap 9.6 mmol/L (10.00-18.00); BUN/Creat Ratio 22.94 Ratio (12.00-20.00); Blood Urea Nitrogen 19.2 mg/dL (9.0-27.0); Calcium 8.8 mg/dL (8.7-10.3); Carbon Dioxide 24.8 mmol/L (20.0-27.5); Globulin 2.3 g/dL (1.6-3.3); Non-African American GFR(CKD) 100.8 (60.0-200.0); Total Bilirubin 0.3 mg/dL (0.30-1.20); Total Protein 5.9 g/dL (6.2-8.2)
== END 2021-05-29 16:35 | disposition home health service (06) ==
LOC: OR 08:24 → 4SSUR 12:59 → OR 05-29 16:35
PROVIDERS: ATTEND Orthopaedic Surgery
DX: M17.11 Unilateral primary osteoarthritis, right knee (principal); F32.9 Major depressive disorder, single episode, unspecified; K57.90 Diverticulosis of intestine, part unspecified, without perforation or abscess without bleeding; J45.909 Unspecified asthma, uncomplicated; Z79.899 Other long term (current) drug therapy; Z88.5 Allergy status to narcotic agent; Z91.048 Other nonmedicinal substance allergy status
CPT/HCPCS: 97161; 64999; 64448; 76942; 80053; 85025; 88300; 87635; 73560; 27447; C1713 ×2; C1776; J2250; J0330; J2270; J1100; J0690 ×3; J2405; J2001; J3010; J1650; J2795 ×2; J2704; J1170

== ENCOUNTER → 2022-01-20 | Outpatient (CLI) | payer OTHER | END | disposition home or self-care (01) | LOC: LABPAT 07:12 | PROVIDERS: ATTEND Orthopaedic Surgery | DX: Z01.812 Encounter for preprocedural laboratory examination (principal); Z22.322 Carrier or suspected carrier of Methicillin resistant Staphylococcus aureus; M17.12 Unilateral primary osteoarthritis, left knee | CPT/HCPCS: 87070 ==

== ENCOUNTER → 2022-10-07 | Outpatient (CLI) | payer OTHER ==
--- NOTE | 2022-10-07 10:49 | XR ---
EXAMINATION TYPE: XR chest 2V DATE OF EXAM: 10/07/2022 COMPARISON: 05/28/2017 HISTORY: 52 year-old male shortness of breath TECHNIQUE: Frontal and lateral views FINDINGS: Heart normal size. Aorta and pulmonary vasculature within normal limits. Focal opacity left base seen posteriorly on the lateral view and along the apex of the heart on the frontal view. Unchanged bandl carter scarring left midlung. IMPRESSION: Focal left basilar opacity. Possible pneumonia. If there are no infectious signs or symptoms, conside r CT chest for more detailed assessment. Otherwise, follow-up can be performed.
== END | disposition home or self-care (01) ==
LOC: RADXRMAIN 09:06
PROVIDERS: ATTEND Internal Medicine
DX: R91.8 Other nonspecific abnormal finding of lung field (principal); R06.02 Shortness of breath
CPT/HCPCS: 71046

== ENCOUNTER → 2022-10-23 | Outpatient (CLI) | payer OTHER ==
--- NOTE | 2022-10-23 10:16 | XR ---
EXAMINATION TYPE: XR chest 2V DATE OF EXAM: 10/23/2022 COMPARISON: Chest x-ray October 07, 2022 and older study May 28, 2017 HISTORY: Recent pneumonia, abnormal x-ray. TECHNIQUE: Frontal and lateral views of the chest are obtained. FINDINGS: Persistent left hilar linear opacity consistent with scarring and/or atelectasis. Persiste nt hazy lingular opacity silhouetting portion of left heart border. This has similar appearance to pr ior x-rays. No new focal airspace opacity, pleural effusion, or pneumothorax is seen. The cardiac dylan houette size is stable and within normal limits. The osseous structures are intact. IMPRESSION: Left hilar and lingular opacities redemonstrated favoring scarring. No new acute infiltr ate.
== END | disposition home or self-care (01) ==
LOC: RADXRMAIN 09:55
PROVIDERS: ATTEND Internal Medicine
DX: R91.8 Other nonspecific abnormal finding of lung field (principal); Z87.01 Personal history of pneumonia (recurrent)
CPT/HCPCS: 71046

== ENCOUNTER 2022-11-21 12:26 | Emergency (ER) | payer OTHER ==
[2022-11-21 12:30] VITALS: BP 119/80; PULSE 89; RESP 22; TEMP 97.6
[2022-11-21] MEDS ORDERED: HYDROcodone/APAP 5-325MG 1 EACH TAB PO STA (12:41)
[2022-11-21] MEDS ORDERED: DIPH,PERTUS(ACELL)TETVAC-LF 0.5 ML VIAL IM ONE (12:42)
--- NOTE | 2022-11-21 12:43 | ED ---
Wound/Laceration HPI - General Chief Complaint: Wound/Laceration Stated Complaint: left finger laceration Time Seen by Provider: 11/21/22 12:31 Source: patient, RN notes reviewed Mode of arrival: ambulatory Limitations: no limitations - History of Present Illness Initial Comments: This is a pleasant, [id number] 52-year-old male who presents to the emergency department complaining of a laceration to the distal aspect of his left index finger.Injury occurred just prior to arrival. Patient was using a hand-held circular saw. Patient describes throbbing pain to the distal aspect of the finger which is exacerbated by movement and palpation. Alleviated somewhat by rest. No other injuries. No paresthesias. No proximal injuries. She is a nonsmoker. Has history of asthma and heart murmur. No blood thinners. No immunosuppression or diabetes. Last tetanus is unknown. - Related Data Home Medications Medication Instructions Recorded Confirmed ALPRAZolam [Xanax] 0.5 mg PO HS PRN 01/17/20 11/21/22 Citalopram Hydrobromide [CeleXA] 20 mg PO DAILY 01/17/20 11/21/22 Albuterol Sulfate [Proair Hfa] 2 puff INHALATION RT-QID PRN 02/20/21 11/21/22 atenoloL [Tenormin] 50 mg PO DAILY 11/21/22 11/21/22 Previous Rx's Medication Instructions Recorded Cephalexin [Keflex] 500 mg PO Q6HR #40 cap 11/21/22 HYDROcodone/APAP 5-325MG [[place] 1 tab PO Q6HR PRN 3 Days #12 tab 11/21/22 5-325] Allergies Allergy/AdvReac Type Severity Reaction Status Date / Time hydromorphone [From Dilaudid] AdvReac Itching Verified 11/21/22 13:50 STERI-STRIPS AdvReac Severe BLISTERS Uncoded 11/21/22 12:31 Review of Systems ROS Statement: Those systems with pertinent positive or pertinent negative responses have been documented in the HPI. ROS Other: All systems not noted in ROS Statement are negative. Past Medical History Past Medical History: Asthma Additional Past Medical History / Comment(s): Hx Diverticulitis requiring bowel resection and temporary colostomy. Wears a right knee brace. History of Any Multi-Drug Resistant Organisms: None Reported Past Surgical History: Back Surgery, Bowel Resection, Orthopedic Surgery Additional Past Surgical History / Comment(s): Hand, knee, achilles, and shoulder surgery, left lobectomy for non-cancerous tumor, colostomy, colostomy reversal. Spinal fusion with pins/screws. Past Anesthesia/Blood Transfusion Reactions: Postoperative Nausea & Vomiting (PONV) Past Psychological History: Anxiety, Depression Smoking Status: Never smoker Past Alcohol Use History: None Reported Past Drug Use History: None Reported - Past Family History Father Family Medical History: Cancer Additional Family Medical History / Comment(s): Current Stage 4 Lung Cancer. Mother Family Medical History: Cancer General Exam Limitations: no limitations General appearance: alert, in no apparent distress Head exam: Present: atraumatic, normocephalic, normal inspection Eye exam: Present: normal appearance, PERRL, EOMI. Absent: scleral icterus Neck exam: Present: normal inspection Respiratory exam: Present: normal lung sounds bilaterally. Absent: respiratory distress, wheezes, rales, rhonchi, stridor Cardiovascular Exam: Present: regular rate, normal rhythm, normal heart sounds. Absent: systolic murmur, diastolic murmur, rubs, gallop, clicks GI/Abdominal exam: Absent: distended, normal bowel sounds Extremities exam: Present: full ROM, normal capillary refill, other. Absent: calf tenderness Left Forearm Wrist exam: Present: normal inspection, full ROM. Absent: tenderness Hand Wrist exam: Present: laceration (Laceration distal aspect left index finger, appears to be full tendon function. Mild anesthesia to the skin flap. No active bleeding. No contamination. No evidence of foreign body. Capillary refill less than 2 seconds), other (Devitalized skin flap noted to the radial aspect of the index finger, overlying the distal phalanx with exposed bone). Absent: swelling, abrasion Neuro motor exam: Present: wrist extension intact, thumb opposition intact, thumb IP flexion intact, thumb adduction intact, fingers 2-5 abduction intact Neurosensory exam: Present: 2-point discrimination, radial nerve intact, ulnar nerve intact, median nerve intact Vascular: Present: normal capillary refill. Absent: vascular compromise Back exam: Present: normal inspection Neurological exam: Present: alert, oriented X3, CN II-XII intact Psychiatric exam: Present: normal affect, normal mood Skin exam: Present: warm, dry, normal color. Absent: intact, rash Course Vital Signs 11/21/22 12:29 Temperature 97.6 F Pulse Rate 89 Respiratory 22 Rate Blood Pressure 119/80 O2 Sat by Pulse 97 Oximetry - Reevaluation(s) Reevaluation #1: 11/21/22 14:28 Case discussed in detail with the [facility] from [facility], Heath curran. Patient will follow up on Thursday or Thursday with the [facility]. Procedures - Laceration Laceration #1 Consent Obtained: verbal consent Indication: laceration Site: hand (Left index finger, distal phalanx area) Description: flap (Devitalized flap, aspiration length 3 cm) Anesthetic Used: lidocaine 1% Anesthesia Technique: nerve block (Digital block, 3 mL of anesthetic) Amount (mls): 3 Pre-repair: wound explored, irrigated extensively, extensive debridement (Devitalized skin flap with no blood flow was debrided using forceps and sterile scissors. Area debridement 1 x 2 cm.) Patient Tolerated Procedure: well, no complications Additional Comments: No indication for suturing after debridement. This was a devitalized skin flap. Pale, no blood flow noted. Patient did have exposed bone noted on evaluation and inspection. Wound was irrigated copiously with 300 mL of normal saline. Medical Decision Making - Medical Decision Making Was pt. sent in by a medical professional or institution? @ -No Did you speak to anyone other than the patient for history? @ -Chest girlfriend in the room providing limited additional details of the patient's past medical history Did you review nursing and triage notes? @ -Agree Were old charts reviewed? @ -No Differential Diagnosis? @ -Skin avulsion, laceration, open fracture, not consistent with tendinous injury. No evidence of foreign body. EKG interpreted by me (3pts min.)? @ -[none] X-rays interpreted by me (1pt min.)? @ -Independent interpretation of the left index finger plain film x-rays by me shows evidence of soft tissue injury with underlying distal phalanx fracture with distracted bone fragments. CT interpreted by me (1pt min.)? @ -[none] U/S interpreted by me (1pt. min.)? @ -[none] What testing was considered but not performed? (CT, X-rays, U/S, labs)? Why? @ No What meds were considered but not given? Why? @ -[none] Did you discuss the management of the patient with other professionals? @ -Discussed with on-call orthopedics, Jaden Kirby, APC Did you reconcile home meds? @ -no Was smoking cessation discussed for >3mins.? @ -Not applicable Was critical care preformed (if so, how long)? @ -no Were there social determinants of health that impacted care today? How? (Homelessness, low income, unemployed, alcoholism, drug addiction, transportation, low edu. Level, literacy, decrease access to med. care, skilled nursing, rehab)? @ -None Was there de-escalation of care discussed even if they declined? (Discuss DNR or withdrawal of care, Hospice)? @ -Not applicable What co-morbidities impacted this encounter? (DM, HTN, Smoking, COPD, CAD, Cancer, CVA, Hep., AIDS, mental health diagnosis, sleep apnea, morbid obesity)? @ -None Was patient admitted / discharged? @ -[hospital course] Undiagnosed new problem with uncertain prognosis? @ -New diagnosis, unknown prognosis since there is bony involvement. Patient will need to be followed closely by orthopedics Drug Therapy requiring intensive monitoring for toxicity (Heparin, Nitro, Insulin, Cardizem)? @ -[none] Were any procedures done? @ -Initial laceration repair turned out to be wound debridement since there is a devitalized skin flap. Patient basically had soft tissue avulsion with bony exposure to the distal phalanx Diagnosis/symptom? @ -Open fracture left index finger, distal phalanx, skin avulsion devitalized flap Acute, or Chronic, or Acute on Chronic? @ -Acute Uncomplicated (without systemic symptoms) or Complicated (systemic symptoms)? @ -Complicated due to open fracture, increased risk of infectious process, will require close monitoring for possible infectious process. Side effects of treatment? @ -[none] Exacerbation, Progression, or Severe Exacerbation] @ -[no] Poses a threat to life or bodily function? @ -Infectious process will need to be presented, patient was given Ancef 1 g IM here and will be placed on Keflex 500 mg 4 times a day. Short course of [place] will be given as well, three-day supply. Patient was told to return to the ER for any signs or symptoms worsen. Told to return immediately if any other problems arise. All questions answered. Treatment plan discussed. Patient in agreement Every effort has been made to ensure accuracy of this dictation. However, due to the limitations of electronic medical records and dictation devices, errors in charting still occur. Patient follow-up with Dr. Rosario [facility] on Thursday. Heath kirby notified from the ER. Case discussed in detail. Disposition Clinical Impression: Open fracture of distal phalanx of left index finger, Soft tissue avulsion Disposition: HOME SELF-CARE Condition: Stable Instructions (If sedation given, give patient instructions): Finger Fracture (ED), Skin Avulsion (ED) Additional Instructions: Follow-up with orthopedics as directed. Return to the ER immediately if any symptoms worsen, new symptoms arise, or any other problems develop. Leave the dressing on until follow-up on Thursday. Take the antibiotics as directed. Wear the finger splint for protection. Elevate as much as possible. Return to the ER at anytime if any signs or symptoms of infection develop in the interim. Do not drive or operate machinery taking the pain medication. Is patient prescribed a controlled substance at d/c from ED?: Yes When asked, does pt state using other controlled substances?: No If prescribed controlled substance>3 days was MAPS reviewed?: Prescribed <3 Days Referrals: Richie Rosario DO [Doctor of Osteopathic Medicine] - 11/24/22 Time of Disposition: 14:30
[2022-11-21] MEDS ORDERED: LIDOCAINE 1% INJ 10MG/ML (30 ML VIAL-PF) SQ ONE (13:07)
--- NOTE | 2022-11-21 13:25 | XR ---
Left index finger. HISTORY: Pain following trauma with saw. COMPARISON: None. TECHNIQUE: 3 views left index finger were obtained. There is a soft tissue defect along the radial aspect of the distal left index finger. There is mild disruption of the tuft underlying the soft tissue defect consistent with cortical disruption secondar y to trauma. There are no radiopaque foreign bodies within the soft tissues. There are no intra-artic ular abnormalities of the index finger. IMPRESSION: Soft tissue and osseous trauma to the distal phalanx of the left index finger as described.
[2022-11-21] MEDS ORDERED: ceFAZolin 1,000 MG VIAL (IM USE) IM STA (13:35)
[2022-11-21] MEDS ORDERED: BACITRACIN ZINC 500 UNIT/GM OINT 28.4 GM TUBE TOPICAL STA (13:58)
== END 2022-11-21 14:52 | disposition home or self-care (01) ==
LOC: EC 12:26
DX: S62.631B Displaced fracture of distal phalanx of left index finger, initial encounter for open fracture (principal); J45.909 Unspecified asthma, uncomplicated; F41.9 Anxiety disorder, unspecified; F32.A Depression, unspecified; Z23 Encounter for immunization; Z79.899 Other long term (current) drug therapy; Z88.5 Allergy status to narcotic agent; Z88.8 Allergy status to other drugs, medicaments and biological substances; W31.2XXA Contact with powered woodworking and forming machines, initial encounter
CPT/HCPCS: 73140; 90715; 99283; 12002; 96372; 90471; J0690; J2001

== ENCOUNTER 2022-11-26 13:26 | Day surgery (SDC) | payer OTHER ==
--- NOTE | 2022-11-25 13:50 | P.HPOR ---
History of Present Illness H&P Date: 11/25/22 Subjective: This is a 52 year old male that presents today for initial evaluation regarding left index finger injury that occurred on 11/21/2022 when he was using a circular saw and cut the tip of his left index finger. He was seen in the emergency department where the wound was debrided and they removed some of the tissue from the distal aspect of this finger. No sutures were placed. He complains today of residual deformity and open laceration on the radial aspect of his index finger. He does state he has some numbness at the very tip of the finger. He was given antibiotics and tetanus shot in the emergency department and placed in a soft dressing. Physical Examination: LUE: AIN/PIN/Radial/Ulnar/Median motor intact. Radial/Ulnar/Median SILT. 2+/4 Radial/Ulnar pulses palpated. 5/5 APB, 5/5 FDI. 3CM oblique laceration along rad ial boarder of the index finger extending from PIP joint to the tip of the finger. Finger held in DIP flexion. Able to resist gentle DIP flexion. FDP intact against resistance. Numbness at very tip of the digit near hyponychial region. Radial boarder of nailbed appears lacerated with extensive hematoma around the laceration. Imaging: X-Rays of the left index finger reviewed from 11/21/2022, demonstrate slight cortical irregularity on the radial border of the distal aspect of the index distal phalanx soft tissue loss. Impression: 1.) Left open index finger distal phalanx fracture 2.) Left index finger 3cm complex laceration 3.) Possible left index finger extensor tendon laceration Plan: Diagnosis and treatment options were discussed with the patient. I recommend surgical exploration for for his open laceration consisting of left index finger complex laceration repair vs left index finger extensor tendon repair with p ossible DIP joint pinning. Risks and benefits of surgery including bleeding, infection, damage to surrounding tissue, need for further surgery, residual numbness were discussed and the patient wished to go forward with surgery. The patient was agreeable with this plan. CC: Radha Cai MD -Richie Rosario DO Orthopedic Hand/Upper Extremity Surgeon Past Medical History Past Medical History: Asthma Additional Past Medical History / Comment(s): Hx Diverticulitis requiring bowel resection and temporary colostomy. Wears a right knee brace. History of Any Multi-Drug Resistant Organisms: None Reported Past Surgical History: Back Surgery, Bowel Resection, Orthopedic Surgery Additional Past Surgical History / Comment(s): Hand, knee, achilles, and shoulder surgery, left lobectomy for non-cancerous tumor, colostomy, colostomy reversal. Spinal fusion with pins/screws. Past Anesthesia/Blood Transfusion Reactions: Postoperative Nausea & Vomiting (PONV) Past Psychological History: Anxiety, Depression Smoking Status: Never smoker Past Alcohol Use History: None Reported Past Drug Use History: None Reported - Past Family History Father Family Medical History: Cancer Additional Family Medical History / Comment(s): Current Stage 4 Lung Cancer. Mother Family Medical History: Cancer Medications and Allergies Home Medications Medication Instructions Recorded Confirmed Type ALPRAZolam [Xanax] 0.5 mg PO HS PRN 01/17/20 11/21/22 History Citalopram Hydrobromide [CeleXA] 20 mg PO DAILY 01/17/20 11/21/22 History Albuterol Sulfate [Proair Hfa] 2 puff INHALATION RT-QID PRN 02/20/21 11/21/22 History Cephalexin [Keflex] 500 mg PO Q6HR #40 cap 11/21/22 Rx HYDROcodone/APAP 5-325MG [[place] 1 tab PO Q6HR PRN 3 Days #12 tab 11/21/22 Rx 5-325] atenoloL [Tenormin] 50 mg PO DAILY 11/21/22 11/21/22 History Allergies Allergy/AdvReac Type Severity Reaction Status Date / Time hydromorphone [From Dilaudid] AdvReac Itching Verified 11/21/22 13:50 STERI-STRIPS AdvReac Severe BLISTERS Uncoded 11/21/22 12:31 Physical Examination Osteopathic Statement: *. No significant issues noted on an osteopathic structural exam other than those noted in the History and Physical/Consult.
[~2022-11-26 13:26] MED LIST changes: -.fentaNYL (PF) 50 MCG/ML 2 ML AMP IV PRN; -ACETAMINOPHEN TAB 500 MG TAB PO PRN; -DEXAMETHASONE SOD PHOSPHATE 4 MG/ML 1 ML VIAL IV ONE; -MELOXICAM 7.5 MG TAB PO PRN; -ONDANSETRON 4 MG/2 ML VIAL IVP ONE; -TRANEXAMIC ACID 1,000 MG in SODIUM CHLORIDE 0.9% 100 ML IVPB PRN
[2022-11-26 13:48] VITALS: RESP 16; TEMP 98
[2022-11-26] MEDS ORDERED: LACTATED RINGERS 1,000 ML IV ONE (13:56)
[2022-11-26 14:16] LABS: Basophils % (A) 1 %; Eosinophils # (A) 0.1 k/uL (0-0.7); Eosinophils % (A) 3 %; HCT 42.3 % (39.0-53.0); HGB 14.4 gm/dL (13.0-17.5); Lymphocytes # (A) 1.3 k/uL (1.0-4.8); Lymphocytes % (A) 35 %; MCH 32.4 pg (25.0-35.0); MCHC 34.1 g/dL (31.0-37.0); Mean Platelet Volume 7.9; Monocytes # (A) 0.2 k/uL (0-1.0); Monocytes % (A) 6 %; Neutrophils % (A) 54 %; Platelet Count 197 k/uL (150-450); RBC 4.45 m/uL (4.30-5.90); RDW 12.5 % (11.5-15.5); WBC 3.7 k/uL (3.8-10.6)
[2022-11-26] MEDS ORDERED: ONDANSETRON 4 MG/2 ML VIAL ONE (14:16)
[2022-11-26 14:25] LABS: Potassium 4.4 mmol/L (3.5-5.1)
[2022-11-26 14:26] LABS: ALT 37 U/L (4-49); AST 39 U/L (17-59); African American GFR (CKD) >90 (>60 ml/min/1.73 sqM); Alkaline Phosphatase 70 U/L (38-126); Anion Gap 5 mmol/L; Blood Urea Nitrogen 23 mg/dL (9-20); Calcium 8.8 mg/dL (8.4-10.2); Carbon Dioxide 30 mmol/L (22-30); Chloride 104 mmol/L (98-107); Glucose 94 mg/dL (74-99); Non-African American GFR(CKD) >90 (>60 ml/min/1.73 sqM); Sodium 139 mmol/L (137-145); Total Bilirubin 0.6 mg/dL (0.2-1.3); Total Protein 7.3 g/dL (6.3-8.2)
[2022-11-26] MEDS ORDERED: MIDAZOLAM 2 MG/2 ML VIAL IVP ONE (15:00)
[2022-11-26] MEDS ORDERED: DEXAMETHASONE SOD PHOSPHATE 4 MG/ML 1 ML VIAL IVP ONE (15:00)
--- NOTE | 2022-11-26 15:14 | P.ANPRN ---
Procedure Note - Anesthesia - Nerve Block Performed Left Axillary Single Time Out Performed: Yes Date of Procedure: 11/26/22 Procedure Start Time: 14:58 Procedure Stop Time: 15:05 Location of Patient: PreOp Indication: Acute Post-Operative Pain, Requested by Surgeon Sedation Type: Sedate with meaningful contact maintained Preparation: Sterile Prep, Sterile Dressing Position: Sitting Catheter: None Needle Types: Facet Needle Gauge: 20 Ultrasound used to visualize needle placement: Yes Ultrasound used to observe medication spread: Yes Injectate: 0.5% Ropivacaine (see comment for volume) (30 ml + decadron 4 mg) Blood Aspirated: No Pain Paresthesia on Injection Noted: No Resistance on Injection: Normal Image Stored and Saved: Yes Events: Uneventful and Well Tolerated
[2022-11-26] MEDS ORDERED: BUPIVACAINE (PF) 0.5% 30 ML VIAL SQ ONE (15:57)
[2022-11-26] MEDS ORDERED: LIDOCAINE 1% INJ 10MG/ML (20 ML MDV) SQ ONE (15:57)
[2022-11-26] MEDS ORDERED: ROPIVACAINE 5 MG/ML 30 ML VIAL ONE (15:58)
[2022-11-26] MEDS ORDERED: MIDAZOLAM 2 MG/2 ML VIAL ONE (15:58)
[2022-11-26] MEDS ORDERED: PROPOFOL 10 MG/ML 20 ML VIAL IV ONE (15:58)
[2022-11-26] MEDS ORDERED: DEXAMETHASONE SOD PHOSPHATE 4 MG/ML 1 ML VIAL ONE (15:58)
[2022-11-26] MEDS ORDERED: fentaNYL (PF) 50 MCG/ML 2 ML AMP ONE (15:58)
[2022-11-26] MEDS ORDERED: BACITRACIN ZINC 500 UNIT/GM OINT 28.4 GM TUBE TOPICAL ONE (16:25)
[2022-11-26 16:57] VITALS: BP 106/68; PULSE 65
--- NOTE | 2022-11-26 18:37 | P.OP ---
Date of Procedure: 11/26/22 Preoperative Diagnosis: 1.)Left index finger laceration 3cm 2.) Left index finger sterile matrix laceration 3.) Left index finger open distal phalanx fracture Postoperative Diagnosis: 1.)Left index finger laceration 3cm 2.) Left index finger sterile matrix laceration 3.) Left index finger open distal phalanx fracture Procedure(s) Performed: 1.) Left index finger complex laceration repair 3cm 2.) Left index finger sterile matrix laceration nailbed laceration repair 3.) Closed treatment of left index finger open distal phalanx fracture 4.) Left index finger nail plate removal Anesthesia: regional Surgeon: Richie Rosario Windmill Mechanic #1: John Clark Estimated Blood Loss (ml): 0 Pathology: none sent Condition: stable Disposition: PACU Description of Procedure: This is a 52 year old male who sustained an injury to his left index finger after being cut by a circular saw and presents today for surgical exploration and repair of his injuries. Risks and benefits of surgery were discussed with the patient including bleeding, damage to surrounding tissue, infection, need for further surgery as well as risks of anesthesia including pulmonary embolism and even and the patient wished to proceed with surgical intervention. The patient was seen in the pre-operative area by myself. Consent and H&P were completed and updated. The correct extremity was marked in the pre-operative area by myself and all other questions were answered. Operative Narrative: The patient was brought to the operating room by the department of anesthesia. They remained on the portable stretcher and a rolling hand table was brought to the side of the operative extremity. Pre-operative time out was performed indicating the correct patient, procedure and laterality. All in the room agreed. Pre-operative antibiotics were given prior to skin incision. The patient was then drifted off to sleep by the department of anesthesia. Patient received a pre operative axillary nerve block by the department of anesthesia. A nonsterile tourniquet was then applied to the operative extremity and the left upper extremity was then prepped and draped in normal sterile fashion. The operative extremity was the exsanguinated with an esmarch bandage and the tourniquet was inflated to 250mmHg. There was a oblique 3cm laceration along radial boarder of the index finger extending from the DIP joint to the volar pulp of the digits. Hematoma was evacuated and the wound was copiously irrigated with sterile saline and edges were freshened up with a freer elevator and blunt dissection. The laceration was down to the non displaced distal phalanx. Nail plate removal was performed with a 15 blade scalpel. After the nail plate was removed wound edges were then loosely approximated with 4-0 chromic suture. There was a longitudinal laceration the the radial portion of the sterile matrix, this was repaired with 4-0 chromic suture in a tension free matter. After approximation of the skin and nailbed there was adequate soft tissue coverage over the distal phalanx with no exposed bone. A sterile dressing was then placed consisting of bacitracin, adaptic, 4x4s, jonathan wrap and loosely applied coban. Tourniquet was let down and the hand had immediate perfusion. The patient was then woken by the department of anesthesia and transferred to PACU in stable condition. John Clark was present to assist in major portions of the procedure. Richie Rosario D.O. Orthopedic Hand/Upper Extremity Surgeon
== END 2022-11-26 17:06 | disposition home or self-care (01) ==
LOC: OR 13:26
PROVIDERS: ATTEND Orthopaedic Surgery Hand Surgery
DX: S62.631B Displaced fracture of distal phalanx of left index finger, initial encounter for open fracture (principal); W31.2XXA Contact with powered woodworking and forming machines, initial encounter; J45.909 Unspecified asthma, uncomplicated; Z87.19 Personal history of other diseases of the digestive system; F41.9 Anxiety disorder, unspecified; F32.A Depression, unspecified; Z79.1 Long term (current) use of non-steroidal anti-inflammatories (NSAID); Z79.51 Long term (current) use of inhaled steroids; Z79.899 Other long term (current) drug therapy; Z88.5 Allergy status to narcotic agent; G89.18 Other acute postprocedural pain
CPT/HCPCS: 26756; 26418; 64415; 80053; 85025; J2250; J1100; J0690; J2405; J3010; J2795; J2704

== ENCOUNTER 2024-02-24 07:01 | Day surgery (SDC) | payer MEDICARE, OTHER ==
[2024-02-19 14:07] VITALS: BMI 39.8
[~2024-02-24 07:01] MED LIST changes: +LIDOCAINE 1% (10MG/ML) FOR IV START INTRADERMA PRN; -ceFAZolin 3 GM in SODIUM CHLORIDE 0.9% 100 ML IVPB PRN
--- NOTE | 2024-02-24 07:38 | P.GSHP ---
History of Present Illness H&P Date: 02/24/24 CHIEF COMPLAINT: Colon screen HISTORY OF PRESENT ILLNESS: The patient is a 53-year-old male who presents for colon screen. Lower endoscopy was offered for further evaluation and management. PAST MEDICAL HISTORY: Please see list. PAST SURGICAL HISTORY: Please see list. MEDICATIONS: Please see list. ALLERGIES: Please see list. SOCIAL HISTORY: No illicit drug use FAMILY HISTORY: No reports of Crohn disease or ulcerative colitis. REVIEW OF ORGAN SYSTEMS: CONSTITUTIONAL: No reports of fevers or chills. PHYSICAL EXAM: VITAL SIGNS: Stable GENERAL: Well-developed pleasant in no acute distress. HEENT: No scleral icterus. Extraocular movements grossly intact. Moist buccal mucosa. NECK: Supple without lymphadenopathy. CHEST: Unlabored respirations. Equal bilateral excursions. CARDIOVASCULAR: Regular rate and rhythm. Distal 2+ pulses. ABDOMEN: Soft, nontender, nondistended. MUSCULOSKELETAL: No clubbing, cyanosis, or edema. ASSESSMENT: 1. Colon screen. PLAN: 1. Recommend proceeding with a lower endoscopy Past Medical History Past Medical History: Asthma Additional Past Medical History / Comment(s): Hx Diverticulitis requiring bowel resection and temporary colostomy. History of Any Multi-Drug Resistant Organisms: None Reported Past Surgical History: Adenoidectomy, Appendectomy, Back Surgery, Bowel Resection, Hernia Repair, Orthopedic Surgery, Tonsillectomy Additional Past Surgical History / Comment(s): Hand, knee, achilles, and shoulder surgery, left lobectomy for non-cancerous tumor, colostomy, colostomy reversal. Spinal fusion with pins/screws. Past Anesthesia/Blood Transfusion Reactions: No Reported Reaction, Postoperative Nausea & Vomiting (PONV) Additional Past Anesthesia/Blood Transfusion Reaction / Comment(s): no blood transfusion Smoking Status: Never smoker - Past Family History Father Family Medical History: Cancer Additional Family Medical History / Comment(s): Current Stage 4 Lung Cancer. Mother Family Medical History: Cancer Additional Family Medical History / Comment(s): bowel Medications and Allergies Home Medications Medication Instructions Recorded Confirmed Type ALPRAZolam [Xanax] 0.5 mg PO HS PRN 01/17/20 02/24/24 History Citalopram Hydrobromide [CeleXA] 20 mg PO DAILY 01/17/20 02/24/24 History Albuterol Sulfate [Proair Hfa] 2 puff INHALATION RT-QID PRN 02/20/21 02/24/24 History atenoloL [Tenormin] 50 mg PO DAILY 11/21/22 02/24/24 History Celecoxib [CeleBREX] 200 mg PO DAILY 02/19/24 02/19/24 History Allergies Allergy/AdvReac Type Severity Reaction Status Date / Time hydromorphone [From Dilaudid] AdvReac Itching Verified 02/24/24 07:32 STERI-STRIPS AdvReac Severe BLISTERS Uncoded 02/24/24 07:32
[2024-02-24 07:46] VITALS: TEMP 97.5
[2024-02-24] MEDS: IV FLUID CONTINUATION 1,000 ML IV ONE (07:49)
[2024-02-24] MEDS: LACTATED RINGERS 1,000 ML IV SCH (07:51)
[2024-02-24] MEDS ORDERED: PROPOFOL 10 MG/ML 20 ML VIAL IV ONE (08:11)
--- NOTE | 2024-02-24 08:52 | P.PCN ---
Date of Procedure: 02/24/24 Description of Procedure: PREOPERATIVE DIAGNOSIS: History of colon polyps Colonoscopy screening. POSTOPERATIVE DIAGNOSIS: Colonoscopy screening. Diverticulosis, scattered. OPERATION: Colonoscopy to the cecum, ileocecal valve and appendiceal orifice. SURGEON: Charmaine Watson MD. ANESTHESIA: MAC. INDICATIONS: The patient is a 53-year-old male who presents for colonoscopy screening. Last colonoscopy 5 years ago. Benefits and risks were described and informed consent was obtained. DESCRIPTION OF PROCEDURE: The patient had undergone Sutab prep. The patient had been brought into the operating room and laid in the left lateral decubitus position. After adequate intravenous sedation, the rectum was examined with 2% lidocaine jelly. No external hemorrhoids were encountered. The rectal tone was within normal limits. No lesions were palpated in the rectal vault. An Olympus colonoscope was advan rubina until the cecum, ileocecal valve and appendiceal orifice were clearly viewed. The prep was good. Scattered diverticulosis was encountered. No colonic polyps were found. No evidence of focal colitis was found. Retroflexion of the scope demonstrated grade 1 internal hemorrhoids without active bleeding or inflammation. The colon was desufflated. The patient had tolerated the procedure well. Withdrawal time was over 6 minutes. FINDINGS: Aronchick preparation quality scale 1+ (1-5) Internal hemorrhoids, grade 1 No external prolapsed hemorrhoids. No arteriovenous malformations. No adenomatous polyps. No focal colitis. Few scattered diverticulosis, sigmoid colon RECOMMENDATIONS: Lower endoscopy 5 years, 2028 Plan - Discharge Summary Discharge Rx Participant: No New Discharge Prescriptions: Continue Citalopram Hydrobromide [CeleXA] 20 mg PO DAILY ALPRAZolam [Xanax] 0.5 mg PO HS PRN PRN Reason: Anxiety Albuterol Sulfate [Proair Hfa] 2 puff INHALATION RT-QID PRN PRN Reason: Shortness Of Breath atenoloL [Tenormin] 50 mg PO DAILY Celecoxib [CeleBREX] 200 mg PO DAILY Discharge Medication List ALPRAZolam [Xanax] 0.5 mg PO HS PRN 01/17/20 [History] Citalopram Hydrobromide [CeleXA] 20 mg PO DAILY 01/17/20 [History] Albuterol Sulfate [Proair Hfa] 2 puff INHALATION RT-QID PRN 02/20/21 [History] atenoloL [Tenormin] 50 mg PO DAILY 11/21/22 [History] Celecoxib [CeleBREX] 200 mg PO DAILY 02/19/24 [History] Follow up Appointment(s)/Referral(s): Charmaine Watson MD [STAFF PHYSICIAN] - As Needed Patient Instructions/Handouts: *Surgery [facility] - (Anesthesia) Discharge Instructions Outpatient Surgery, Diverticulosis (ED), Diverticulosis Diet (GEN) Activity/Diet/Wound Care/Special Instructions: Repeat colonoscopy 5 years, 2028 Discharge Disposition: HOME SELF-CARE
[2024-02-24 09:20] VITALS: BP 113/72; PULSE 61; RESP 18
== END 2024-02-24 09:22 | disposition home or self-care (01) ==
LOC: ORWHC2ENDO 07:01
PROVIDERS: ATTEND Surgery Plastic and Reconstructive Surgery
DX: Z12.11 Encounter for screening for malignant neoplasm of colon (principal); K57.30 Diverticulosis of large intestine without perforation or abscess without bleeding; J45.909 Unspecified asthma, uncomplicated; Z79.1 Long term (current) use of non-steroidal anti-inflammatories (NSAID); Z86.010 Personal history of colon polyps; Z88.5 Allergy status to narcotic agent; Z90.49 Acquired absence of other specified parts of digestive tract; Z90.89 Acquired absence of other organs; Z98.890 Other specified postprocedural states

== ENCOUNTER 2024-11-30 04:58 | Emergency (ER) | payer MEDICARE, OTHER ==
[2024-11-30] MEDS: HYDROmorphone 1 MG/ML 1 ML SYRINGE IVP STA ×2 (05:43→11:18)
[2024-11-30] MEDS: diphenhydrAMINE 50 MG/ML 1 ML VIAL IVP STA (05:44)
[2024-11-30] MEDS: KETOROLAC 15 MG/ML 1 ML VIAL IVP STA (05:44)
[2024-11-30] MEDS: SODIUM CHLORIDE 0.9% 1,000 ML IV ONE (05:47)
[2024-11-30 05:52] LABS: Basophils # (A) 0.04 10*3/uL (0.00-0.10); Basophils % (A) 0.6 %; Eosinophils % (A) 1.4 %; HCT 42.6 % (39.6-50.0); HGB 14.8 g/dL (13.0-17.0); Lymphocytes # (A) 1.47 10*3/uL (0.90-5.00); Lymphocytes % (A) 20.6 %; MCH 31.9 pg (27.0-32.0); MCHC 34.7 g/dL (32.0-37.0); MCV 91.8 fL (80.0-97.0); Mean Platelet Volume 9.8 fL (9.5-12.2); Monocytes # (A) 0.58 10*3/uL (0.20-1.00); Monocytes % (A) 8.1 %; Neutrophils # (A) 4.93 10*3/uL (1.80-7.70); Neutrophils % (A) 68.9 %; Platelet Count 256 10*3/uL (140-440); RBC 4.64 10*6/uL (4.40-5.60); WBC 7.15 10*3/uL (4.50-10.00)
[2024-11-30] MEDS: ONDANSETRON 4 MG/2 ML VIAL IVP STA (05:56)
[2024-11-30 06:09] LABS: Partial Thromboplastin Time 23.5 sec (22.0-30.0); Prothrombin Time 10.8 sec (10.0-12.5)
[2024-11-30 06:23] LABS: ALT 31 U/L (4-49); AST 38 U/L (17-59); African American GFR (CKD) 69 (>60 ml/min/1.73 sqM); Albumin 4.7 g/dL (3.5-5.0); Alkaline Phosphatase 96 U/L (38-126); Anion Gap 12 mmol/L; Blood Urea Nitrogen 40 mg/dL (9-20); Calcium 10.2 mg/dL (8.4-10.2); Carbon Dioxide 22 mmol/L (22-30); Chloride 101 mmol/L (98-107); Glucose 122 mg/dL (74-99); Lipase 78 U/L (23-300); Non-African American GFR(CKD) 60 (>60 ml/min/1.73 sqM); Sodium 135 mmol/L (137-145); Total Bilirubin 0.9 mg/dL (0.2-1.3); Total Protein 8.1 g/dL (6.3-8.2)
--- NOTE | 2024-11-30 06:54 | ED ---
General Adult HPI - General Source: patient Mode of arrival: ambulatory Limitations: no limitations <Cayla Deal - Last Filed: 11/30/24 08:10> <Kellee Hartman - Last Filed: 11/30/24 16:17> - General Chief complaint: Abdominal Pain Stated complaint: Abd pain Time Seen by Provider: 11/30/24 05:17 - History of Present Illness Initial comments: Patient is a 54-year-old female past medical history chronic back pain, presenting today for right-sided flank pain. Patient states he has had mild pain on the right side of his back for the last few months however this morning pain suddenly became worse, sharp and intermittent in nature. Denies associated dysuria or hematuria. Denies fevers or chills. No medications at home for pain. Did have an episode of nonbloody nonbilious emesis and associated nausea with onset of pain. Denies melena or hematochezia, last bowel movement was yesterday. Which was normal for the patient. Denies constipation or diarrhea. Prior abdominal surgeries include prior bowel resection with colostomy and ostomy reversal. (Cayla Deal) - Related Data Home Medications Medication Instructions Recorded Confirmed ALPRAZolam [Xanax] 0.5 mg PO HS PRN 01/17/20 02/24/24 Citalopram Hydrobromide [CeleXA] 20 mg PO DAILY 01/17/20 02/24/24 Albuterol Sulfate [Proair Hfa] 2 puff INHALATION RT-QID PRN 02/20/21 02/24/24 atenoloL [Tenormin] 50 mg PO DAILY 11/21/22 02/24/24 Celecoxib [CeleBREX] 200 mg PO DAILY 02/19/24 02/19/24 Previous Rx's Medication Instructions Recorded HYDROcodone/APAP 5-325MG [Pollard 1 tab PO Q6HR PRN 3 Days #12 tab 11/30/24 5-325] Ketorolac [Toradol] 10 mg PO Q8HR #15 tab 11/30/24 Tamsulosin [Flomax] 0.4 mg PO DAILY #7 cap 11/30/24 Allergies Allergy/AdvReac Type Severity Reaction Status Date / Time hydromorphone [From Dilaudid] AdvReac Itching Verified 11/30/24 05:07 STERI-STRIPS AdvReac Severe BLISTERS Uncoded 11/30/24 05:07 Review of Systems ROS Other: All systems not noted in ROS Statement are negative. <EnglishCayla - Last Filed: 11/30/24 08:10> ROS Other: All systems not noted in ROS Statement are negative. <Kellee Hartman Geno - Last Filed: 11/30/24 16:17> ROS Statement: Those systems with pertinent positive or pertinent negative responses have been documented in the HPI. Past Medical History Past Medical History: Asthma Additional Past Medical History / Comment(s): Hx Diverticulitis requiring bowel resection and temporary colostomy. History of Any Multi-Drug Resistant Organisms: None Reported Past Surgical History: Adenoidectomy, Appendectomy, Back Surgery, Bowel Resection, Hernia Repair, Orthopedic Surgery, Tonsillectomy Additional Past Surgical History / Comment(s): Hand, knee, achilles, and shoulder surgery, left lobectomy for non-cancerous tumor, colostomy, colostomy reversal. Spinal fusion with pins/screws. Past Anesthesia/Blood Transfusion Reactions: No Reported Reaction, Postoperative Nausea & Vomiting (PONV) Additional Past Anesthesia/Blood Transfusion Reaction / Comment(s): no blood transfusion Past Psychological History: Anxiety, Depression Smoking Status: Never smoker - Past Family History Father Family Medical History: Cancer Additional Family Medical History / Comment(s): Current Stage 4 Lung Cancer. Mother Family Medical History: Cancer Additional Family Medical History / Comment(s): bowel <Cayla Deal - Last Filed: 11/30/24 08:10> General Exam Limitations: no limitations <EnglishCayla - Last Filed: 11/30/24 08:10> - General Exam Comments Initial Comments: PE: CONSTITUTIONAL: [no apparent distress uncomfortable appearing, pacing around room, nontoxic SKIN: Warm, dry, no jaundice, hives or petechiae EYES: Pupils are equally round, extraocular movements intact without nystagmus, clear conjunctiva, non-icteric sclera HENT: Normocephalic, atraumatic, moist mucus membranes, oropharynx clear without exudates NECK: , Full range of motion, normal appearance PULMONARY: Clear to auscultation without wheezes, rhonchi, or rales, normal excursion, no accessory muscle use and no stridor CARDIOVASCULAR: Regular rate, rhythm, normal S1 and S2. No appreciated murmurs, rubs or gallops. Strong radial pulses with intact distal perfusion. No lower extremity edema GASTROINTESTINAL: Soft, active bowel sounds throughout, non-tender, non- distended, no palpable masses, no rebound or guarding. No hepatosplenomegaly, positive right-sided CVA tenderness GENITOURINARY: MUSCULOSKELETAL: Extremities have no gross deformity, no edema, redness, or swelling. NEUROLOGIC:_a/o x 3, GCS 15, normal mentation and speech. Moves all extremities x 4 without motor or sensory deficit PSYCHIATRIC:_normal mood and affect, thought process is clear and linear (Cayla Deal) Course Vital Signs 11/30/24 11/30/24 11/30/24 05:03 08:57 11:25 Temperature 97.5 F L 98.7 F Pulse Rate 68 67 71 Respiratory 22 18 18 Rate Blood Pressure 125/78 118/86 111/80 O2 Sat by Pulse 98 94 L 96 Oximetry Medical Decision Making - Lab Data Result diagrams: 11/30/24 05:34 11/30/24 05:34 <Cayla Deal - Last Filed: 11/30/24 08:10> - Lab Data Result diagrams: 11/30/24 05:34 11/30/24 05:34 <Kellee Hartman - Last Filed: 11/30/24 16:17> - Medical Decision Making Was pt. sent in by a medical professional or institution (BREANA Henderson, CONCRETE GUN OPERATOR, urgent care, hospital, or [facility]...) When possible be specific @ -No Did you speak to anyone other than the patient for history (EMS, parent, family, police, friend...)? What history was obtained from this source @ -No Did you review nursing and triage notes (agree or disagree)? Why? @ -I reviewed and agree with nursing and triage notes Were old charts reviewed (outside hosp., previous admission, EMS record, old EKG, old radiological studies, urgent care reports/EKG's, [facility] records)? Report findings @ -Medical records were not reviewed Differential Diagnosis (chest pain, altered mental status, abdominal pain women, abdominal pain men, vaginal bleeding, weakness, fever, dyspnea, syncope, headache, dizziness, GI bleed, back pain, seizure, CVA, palpatations, mental health, musculoskeletal)? @ -Differential Back Pain: Strain, zoster, cauda equina syndrome, epidural abscess, vertebral osteomyelitis, discitis, fracture, subluxation, disc herniation, DJD, spinal stenosis, dissection, AAA, pancreatitis, peptic ulcer disease, pyelonephritis, kidney stone, this is not meant to be an all-inclusive list. Pt denies red flag symptoms such as numbness or weakness in LE. No midline spinal pain, though the above differential were considered, symptoms and exam most consistent with ureterolithiasis EKG interpreted by me (3pts min.). @ -As above X-rays interpreted by me (1pt min.). @ -None done CT interpreted by me (1pt min.). @Personally reviewed CT scan appears to show very tiny right-sided kidney stone possibly at UVJ, possibly within the bladder, pending CT read U/S interpreted by me (1pt. min.). @ -None done What testing was considered but not performed or refused? (CT, X-rays, U/S, labs)? Why? @ -None What meds were considered but not given or refused? Why? @ -None Did you discuss the management of the patient with other professionals (professionals i.e. , PA, CONCRETE GUN OPERATOR, lab, RT, psych nurse, social work assistant, pinner printed circuit boards, teacher, fisheries enforcement officer, trimming caser)? Give summary @ -No Was smoking cessation discussed for >3mins.? @ -No Was critical care preformed (if so, how long)? @ -No Were there social determinants of health that impacted care today? How? (Homelessness, low income, unemployed, alcoholism, drug addiction, transportation, low edu. Level, literacy, decrease access to med. care, [facility]ci, rehab)? @ -No Was there de-escalation of care discussed even if they declined (Discuss DNR or withdrawal of care, Hospice)? @ -No What co-morbidities impacted this encounter? (DM, HTN, Smoking, COPD, CAD, Cancer, CVA, ARF, Chemo, Hep., AIDS, mental health diagnosis, sleep apnea, morbid obesity)? @ -None Was patient admitted / discharged? Hospital course, mention meds given and route, prescriptions, significant lab abnormalities, going to OR and other pertinent info. @Signed out to oncoming physician pending CT and UA Patient is a 54-year-old gentleman presenting today for sharp intermittent right sided flank pain. My assessment patient is well-appearing though uncomfortable, pacing around his room. Exam is limited due to patient's difficulty sitting or lying down secondary to pain. Exam significant for right CVA tenderness. Patient states feels like prior kidney stones. Ordered pain control, nausea control, IV fluids CT abdomen pelvis, labs. Patient agreeable plan of care. Labs are significant for no leukocytosis, creatinine 1.33, last creatinine here was on 12/22/2023 0.9 , GFR of [address] scan, urinalysis patient was signed out to oncoming physician, Dr. Hartman, at 7:15 AM. Please see her note for further details of care. = (Cayla Deal) CT completed which demonstrates 2 mm stone at the right UVJ. Patient admits to pain control with the pain medications however it is slowly starting to creep back. I did give the patient another dose of Dilaudid. Discussed results of the CT with the patient. He feels comfortable going home. He will alternate Pollard with Toradol every 4 hours for pain control. Patient is provided with the Flomax. He is to take this medication daily. Increase fluid intake. Strain all of his urine. Follow-up with the primary care doctor in 2 to 4 days. May need urology referral if symptoms persist. Informed him that if he has uncontrolled pain, develops a fever or stops urinating that he needs to return to the emergency department. Patient was agreeable to plan he was discharged in stable condition (Kellee Hartman) - Lab Data Lab Results 11/30/24 11/30/24 11/30/24 Range/Units 05:34 05:34 05:34 WBC 7.15 (4.50-10.00) 10*3/uL RBC 4.64 (4.40-5.60) 10*6/uL Hgb 14.8 (13.0-17.0) g/dL Hct 42.6 (39.6-50.0) % MCV 91.8 (80.0-97.0) fL MCH 31.9 (27.0-32.0) pg MCHC 34.7 (32.0-37.0) g/dL Plt Count 256 (140-440) 10*3/uL MPV 9.8 (9.5-12.2) fL Immature Gran % (Auto) 0.4 % Neutrophils % 68.9 % Lymphocytes % 20.6 % Monocytes % 8.1 % Eosinophils % 1.4 % Basophils % 0.6 % Immature Gran # 0.03 (0.00-0.04) 10*3/uL Neutrophils # 4.93 (1.80-7.70) 10*3/uL Lymphocytes # 1.47 (0.90-5.00) 10*3/uL Monocytes # 0.58 (0.20-1.00) 10*3/uL Eosinophils # 0.10 (0.04-0.35) 10*3/uL Basophils # 0.04 (0.00-0.10) 10*3/uL PT 10.8 (10.0-12.5) sec INR 1.0 (<1.2) APTT 23.5 (22.0-30.0) sec Sodium 135 L (137-145) mmol/L Potassium 4.0 (3.5-5.1) mmol/L Chloride 101 (98-107) mmol/L Carbon Dioxide 22 (22-30) mmol/L Anion Gap 12 mmol/L BUN 40 H (9-20) mg/dL Creatinine 1.33 H (0.66-1.25) mg/dL Est GFR (CKD-EPI)AfAm 69 (>60 ml/min/1.73 sqM) Est GFR (CKD-EPI)NonAf 60 (>60 ml/min/1.73 sqM) Glucose 122 H (74-99) mg/dL Calcium 10.2 (8.4-10.2) mg/dL Total Bilirubin 0.9 (0.2-1.3) mg/dL AST 38 (17-59) U/L ALT 31 (4-49) U/L Alkaline Phosphatase 96 (38-126) U/L Total Protein 8.1 (6.3-8.2) g/dL Albumin 4.7 (3.5-5.0) g/dL Lipase 78 (23-300) U/L Urine Color Urine Appearance (Clear) Urine pH (5.0-8.0) Ur Specific Lyons (1.001-1.035) Urine Protein (Negative) Urine Glucose (UA) (Negative) Urine Ketones (Negative) Urine Blood (Negative) Urine Nitrite (Negative) Urine Bilirubin (Negative) Urine Urobilinogen (<2.0) mg/dL Ur Leukocyte Esterase (Negative) 11/30/24 Range/Units 08:57 WBC (4.50-10.00) 10*3/uL RBC (4.40-5.60) 10*6/uL Hgb (13.0-17.0) g/dL Hct (39.6-50.0) % MCV (80.0-97.0) fL MCH (27.0-32.0) pg MCHC (32.0-37.0) g/dL Plt Count (140-440) 10*3/uL MPV (9.5-12.2) fL Immature Gran % (Auto) % Neutrophils % % Lymphocytes % % Monocytes % % Eosinophils % % Basophils % % Immature Gran # (0.00-0.04) 10*3/uL Neutrophils # (1.80-7.70) 10*3/uL Lymphocytes # (0.90-5.00) 10*3/uL Monocytes # (0.20-1.00) 10*3/uL Eosinophils # (0.04-0.35) 10*3/uL Basophils # (0.00-0.10) 10*3/uL PT (10.0-12.5) sec INR (<1.2) APTT (22.0-30.0) sec Sodium (137-145) mmol/L Potassium (3.5-5.1) mmol/L Chloride (98-107) mmol/L Carbon Dioxide (22-30) mmol/L Anion Gap mmol/L BUN (9-20) mg/dL Creatinine (0.66-1.25) mg/dL Est GFR (CKD-EPI)AfAm (>60 ml/min/1.73 sqM) Est GFR (CKD-EPI)NonAf (>60 ml/min/1.73 sqM) Glucose (74-99) mg/dL Calcium (8.4-10.2) mg/dL Total Bilirubin (0.2-1.3) mg/dL AST (17-59) U/L ALT (4-49) U/L Alkaline Phosphatase (38-126) U/L Total Protein (6.3-8.2) g/dL Albumin (3.5-5.0) g/dL Lipase (23-300) U/L Urine Color Yellow Urine Appearance Clear (Clear) Urine pH 5.5 (5.0-8.0) Ur Specific Lyons 1.029 (1.001-1.035) Urine Protein Trace H (Negative) Urine Glucose (UA) Negative (Negative) Urine Ketones Negative (Negative) Urine Blood Negative (Negative) Urine Nitrite Negative (Negative) Urine Bilirubin Negative (Negative) Urine Urobilinogen <2.0 (<2.0) mg/dL Ur Leukocyte Esterase Negative (Negative) Disposition <Cayla Deal - Last Filed: 11/30/24 08:10> Is patient prescribed a controlled substance at d/c from ED?: Yes When asked, does pt state using other controlled substances?: No If prescribed controlled substance>3 days was MAPS reviewed?: Prescribed <3 Days If opioid is for acute pain is fill amount 7 days or less?: Yes If Rx opioid, was Start Talking consent form obtained?: Yes Time of Disposition: 10:55 <Kellee Hartman - Last Filed: 11/30/24 16:17> Clinical Impression: Ureteral stone with hydronephrosis Disposition: HOME SELF-CARE Condition: Stable Instructions (If sedation given, give patient instructions): Kidney Stones (ED) Additional Instructions: Please alternate taking the Pollard with the Toradol every 4 hours. Drink plenty of fluids. Take the Flomax daily. Strain your urine. Follow-up with your doctor in 2-4 days and return for any new or worsening symptoms Prescriptions: Tamsulosin [Flomax] 0.4 mg PO DAILY #7 cap HYDROcodone/APAP 5-325MG [Pollard 5-325] 1 tab PO Q6HR PRN 3 Days #12 tab PRN Reason: Severe Breakthrough Pain Ketorolac [Toradol] 10 mg PO Q8HR #15 tab Referrals: Radha Cai MD [Primary Care Provider] - 1-2 days Mark Lopez MD [STAFF PHYSICIAN] - 1-2 days
--- NOTE | 2024-11-30 07:25 | CT ---
EXAMINATION TYPE: CT abdomen pelvis wo con DATE OF EXAM: 11/30/2024 6:38 AM COMPARISON: None. CLINICAL INDICATION: Male, 54 years old with history of right flank pain, right flank pain TECHNIQUE: Axial images were obtained from above the diaphragm to the pubic rami in the axial plane a t 5 mm thick sections. Reconstructed images are reviewed on the computer in the coronal plane. CONTRAST: mL of . Study performed without Oral Contrast DLP: 1682 mGycm, Automated exposure control for dose reduction was used. FINDINGS: Limited CT sections are obtained the lung bases. The lung bases are clear. CT ABDOMEN: Liver: Normal Spleen: Normal Pancreas: Normal Adrenal glands: The adrenal glands are normal. Gallbladder: Normal Kidneys: No masses are evident. No hydronephrosis is present. No cysts are present. There is a pun ctate calcification in the superior pole right kidney without obstruction. There is mild right hydron ephrosis. There may be an extrarenal pelvis. Minimal hydroureter to the urinary bladder is present. T here is a partially obstructing punctate renal stone at the right ureteropelvic junction measuring 0. 2 cm. Left kidney appears normal. Aorta: Normal Inferior vena cava: Normal. CT PELVIS: Loops of bowel within the abdomen and pelvis are normal. This study is without neural contrast ma terial in bowel evaluation. Appendix: Not identified. No dilated tubular structure or inflammatory change is evident. Urinary bladder: Normal. Genitourinary structures: Prostate appears normal Osseous structures: No suspicious lytic or sclerotic lesions. IMPRESSION: 1. 0.2 cm right ureterovesical junction stone with mild right hydronephrosis and ureter. [facility], , 11/30/2024 7:22 AM
[2024-11-30 08:58] VITALS: RESP 18
[2024-11-30 09:03] LABS: Appearance,Urine Clear (Clear); Bilirubin,Urine Negative (Negative); Blood,Urine Negative (Negative); Color,Urine Yellow; Glucose,Urine (UA) Negative (Negative); Ketones,Urine Negative (Negative); Leukocyte Esterase,Urine Negative (Negative); Nitrite,Urine Negative (Negative); PH, Urine 5.5 (5.0-8.0); Protein,Urine Trace (Negative); Specific Gravity,Urine 1.029 (1.001-1.035); Urobilinogen,Urine <2.0 mg/dL (<2.0)
[2024-11-30] MEDS: TAMSULOSIN 0.4 MG CAP.ER.24H PO STA (11:17)
[2024-11-30 11:27] VITALS: BP 111/80; PULSE 71; TEMP 98.7
== END 2024-11-30 11:26 | disposition home or self-care (01) ==
LOC: EC 04:58
DX: N13.2 Hydronephrosis with renal and ureteral calculous obstruction (principal); Z88.5 Allergy status to narcotic agent; Z91.09 Other allergy status, other than to drugs and biological substances
CPT/HCPCS: 36415; 80053; 83690; 85025; 85610; 85730; 81003; 74176; 99285; 96374; 96375 ×3; 96376; 96361 ×4; J1200; J2405; J1171; J1885